=== PATIENT | male | born 1995 | race Caucasian/White ===

== ENCOUNTER 2021-02-20 06:27 | Inpatient (IN) ==
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
[2021-02-20] MEDS ORDERED: HALOPERIDOL LACTATE 5 MG/ML 1 ML VIAL IM STA ×2 (06:58→07:29)
[2021-02-20] MEDS ORDERED: LORazepam 2 MG/ML VIAL (IM USE) IM STA ×2 (07:21→07:57)
[2021-02-20 08:00] LABS: Basophils # (auto) 0.02 K/uL (0-0.2); Basophils % (auto) 0.1 %; Eosinophils # (auto) 0.01 K/uL (0-0.5); Eosinophils % (auto) 0.1 %; Hematocrit (blood only) 38.1 % (42-52); Hemoglobin 13.7 g/dL (14.0-18.0); Immature Granulocytes # (auto) 0.05 K/uL (0.00-0.02); Immature Granulocytes % (auto) 0.4 %; Lymphocytes % (auto) 8.1 %; Mean Corpuscular Hemoglobin 31.2 pg (25-34); Mean Corpuscular Volume 86.8 fL (80-100); Mean Platelet Volume 9.7 fL (7.4-10.4); Monocytes # (auto) 0.94 K/uL (0.11-0.59); Monocytes % (auto) 6.9 %; Neutrophils # (auto) 11.49 K/uL (1.4-6.5); Neutrophils % (auto) 84.4 %; Platelet Count 287 K/uL (130-400); RDW Coefficient of Variation 12.9 % (11.5-14.5); Red Blood Count 4.39 M/uL (4.7-6.1); White Blood Count 13.61 K/uL (4.8-10.8)
[2021-02-20 08:17] LABS: Acetaminophen < 2 ug/ml (10-30); Salicylate < 1.7 mg/dl (2.8-20)
[2021-02-20 08:21] LABS: BUN Creatinine Ratio 5.5 (10-20); Creatinine Clr Calc Pharmacy 120.7 ml/min; Est GFR (African American) 107.2 ml/min; Est GFR (Non-African American) 92.5 ml/min; Potassium 2.5 mmol/L (3.5-5.1)
[2021-02-20 08:28] LABS: Albumin Globulin Ratio 1.1 (0.9-2); Globulin 3.6 gm/dl (2.5-4.0); Thyroid Stimulating Hormone 1.92 uIu/ml (0.300-4.500); Total Protein 7.6 gm/dl (6.4-8.2)
[2021-02-20] MEDS ORDERED: POTASSIUM CHLORIDE / WTR 10 MEQ/100 ML PLCT IV ONE (08:29)
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
[2021-02-20] MEDS ORDERED: SODIUM CHLORIDE 0.9% 1000ML 1,000 ML IV ONE (09:13)
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
--- NOTE | 2021-02-20 09:24 | CT Scan Report ---
CT OF THE HEAD WITHOUT CONTRAST CLINICAL HISTORY: Trauma. COMPARISON STUDY: No previous studies for comparison. TECHNIQUE: Helical axial images of the head were obtained without IV contrast. Automated exposure con trol was utilized for the study. A dose lowering technique was utilized adhering to the principles o f ALARA. FINDINGS: This exam is mildly compromised by motion artifact. No acute intracranial hemorrhage, midli ne shift or mass effect is present. Ventricular system is normal. Basilar cisterns are patent. There are no extra-axial collections. Ponce-white differentiation is maintained. No calvarial fracture is id entified. Left maxillary sinus mucosal thickening is present. There is mild ethmoid and left frontal sinus mucosal thickening. IMPRESSION: 1. No acute intracranial findings. Exam mildly compromised by motion artifact. 2. No calvarial fracture identified. ACT 112: Negative or not required by law. Electronically signed by: Olvin Singh M.D. 02/20/2021 9:23 AM
--- NOTE | 2021-02-20 09:28 | CT Scan Report ---
CT OF THE CERVICAL SPINE CLINICAL HISTORY: trauma COMPARISON STUDY: No previous studies for comparison. CT DOSE: TECHNIQUE: CT scan of the cervical spine was performed from the skull base to the thoracic inlet. Merlyn ges are reviewed in the axial, sagittal, and coronal planes. IV contrast was not administered for thi s examination. A dose lowering technique was utilized adhering to the principles of ALARA. FINDINGS: The visualized portions of the lung apices reveal no evidence of pneumothorax. The prevertebral soft tissues are normal. Linear lucency is seen through the spinous process of the T1 and could represent nondisplaced fractur e () no other fracture or traumatic malalignment is seen. Questionable linear lucency of within left lateral aspect of the C6 most likely representing prominen t nutrient channel (). No significant degenerative changes seen. Central canal and bilateral neuroforamina are patent. Bilateral tonsillar prominence is seen. Diffuse edema of the posterior ethmoid air cells and multiple mucous polyps within visualized portion of the left maxillary sinus are demonstrated. IMPRESSION: Possible nondisplaced fracture at the spinous process of T1. No evidence of traumatic malalignment. Sinusitis. The rest of findings as above. ACT 112: Negative or not required by law. The above report was generated using voice recognition software. It may contain grammatical, syntax o r spelling errors. Electronically signed by: Bonnie Bunch DO 02/20/2021 9:27 AM
[2021-02-20 09:31] LABS: Appearance Urine Clear (Clear); Bacteria Urine Automated Negative (Negative); Bilirubin Urine Negative (Negative); Blood Urine Trace (Negative); Color Urine Yellow; Epithelial Cell Urine Auto >30 /lpf (0-5); Glucose Urine UA Negative (Negative); Ketones Urine 1+ (Negative); Leukocyte Esterase Urine Negative (Negative); Nitrite Urine Negative (Negative); RBC Urine Automated 0-4 /hpf (0-4); Specific Gravity Urine 1.015 (1.000-1.030); Urobilinogen Urine Negative (Negative); pH Urine 7.5 (4.5-7.5)
[2021-02-20 09:34] LABS: Protein Urine 2+ (Negative)
[2021-02-20] MEDS ORDERED: cefTRIAXone SODIUM 1,000 MG/50 ML BAG IV STA (09:36)
[2021-02-20 09:56] LABS: Amphetamines+Metham, Urine Neg (Neg); Barbiturates, Urine Neg (Neg); Benzodiazepine, Urine Pos (Neg); Cocaine, Urine Neg (Neg); MDMA (Ecstacy), Urine Neg (Neg); Methadone, Urine Neg (Neg); Opiate, Urine Neg (Neg); Phencyclidine, Urine Neg (Neg)
[2021-02-20] MEDS ORDERED: POTASSIUM CHLORIDE / WTR 10 MEQ/100 ML PLCT IV STA ×2 (10:57→16:19)
[2021-02-20] MEDS: AMPICILLIN/SULBACTAM SOD 3,000 MG in 0.9 % SODIUM CHLORIDE 100 ML IV SCH ×3 (11:30→23:30)
[2021-02-20 12:12] LABS: Allen Test Pos (Pos); Base Excess ABG 0.8 mEq/L (-9-1.8); HCO3 ABG 24 mmol/L (19-24); Oxygen Saturation ABG 97.2 % (90-95); PCO2 ABG 34 mmHg (35-46); PO2 ABG 91 mmHg (80-95); pH ABG 7.47 (7.35-7.45)
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
--- NOTE | 2021-02-20 13:53 | Critical Care Consultation ---
Date of Consultation February 20, 2021 Assessment & Plan (1) Psychosis: (2) Acute encephalopathy: (3) Hypokalemia: (4) Ingestion of foreign substance: (5) Suicidal behavior with attempted self-injury: (6) Rhabdomyolysis: (7) Aspiration into airway: (8) COVID-19: Check a BMP after potassium has been repleted. Lactated Ringer's at a rate of 125 mL/h started given his mild rhabdomyolysis. Rhabdomyolysis likely secondary to thrashing and agitation. We will repeat his CK level. I suspect the bilateral opacities noted in the lower lobes are likely due to chemical pneumonitis from aspiration. Empiric antibiotics for 48 hours reasonable at this time. Leukocytosis likely reactive. Procalcitonin within normal limits. TSH within normal limits. Negative troponin. AST mildly elevated likely secondary to muscle breakdown. Will trend LFTs. COVID-19 testing was positive, but the patient is saturating at 98 to 99% on room air. Likely not pathogenic at this time. No indication for treatment of Covid viral pneumonia. Currently on a psych 302 hold. Will need a psychiatry liaison evaluate for possible inpatient admission when medically stable. Continue Ativan and as needed antipsychotics for agitation. No indication for intubation at this time as the patient is protecting his airway. History of Present Illness Reason for Consultation: Concern for airway protection History of Present Illness 25-year-old male without a significant past medical history presenting to the hospital due to agitation. He was brought to the emergency department by the police. Patient is unable to give any history. I was able to review the chart and discussed with the ER physician, ER nurse and hospitalist. Apparently over the weekend he jumped out of a second story window and try to get into his girlfriend's vehicle. He has been smoking marijuana. He locked himself in the bathroom earlier today and started drinking bottles of shampoo and soap. He was inflicting self-harm by hitting his head in the shower. A 302 petition was completed by the police. Patient received IM Versed by EMS. He received Ativan and Haldol in the ER. He was found to have mild rhabdomyolysis and hypokalemia on labs. CT chest findings were concerning for minimal groundglass opacities in the bilateral lower lobes concerning for possible aspiration. The CT spine findings were concerning for possible nondisplaced fracture at the spinous process of T1. CT head was negative for acute findings. CT abdomen pelvis without acute findings. Patient tested positive for COVID-19 on screening in the emergency department. His salicylate level was negative. Acetaminophen level negative. UDS was positive for marijuana. Other studies pending. Ethylene glycol level negative. Home Medications Medication Instructions Recorded Confirmed Type No Known Home Medications 02/20/21 02/20/21 History Patient History Medical History (Updated 02/20/21 @ 14:27 by Jonh Byrnes MD) Acute encephalopathy No significant past medical history Psychosis Surgical History No significant past surgical history Family History (Updated 02/20/21 @ 12:58 by MESERET Carrera) Other Family history unobtainable due to patient's condition Social History Smoking Status: Unknown if ever smoked Hx Alcohol Use: No (unknown) Hx Substance Use: Yes Prescribed Medications: Marijuana Preferred Language: Yoruba Feels Safe at Home: No Review of Systems Review of Systems: Unobtainable due to mental health condition Physical Exam Constitutional: Constitutional: Patient appears to be of their stated age. Well developed. Lethargic appearing. He does move his limbs spontaneously. Eyes: Pupils are equal round and reactive to light. Conjunctivae are normal. Anicteric sclera. Ears nose, mouth and throat: Mallampati class []. Normal posterior oropharynx. Uvula is midline. Neck: Trachea is midline. Visual inspection is normal. Respiratory: Clear to auscultation bilaterally. No use of accessory muscles. No significant clubbing noted. Cardiovascular: Regular rate and rhythm. No murmurs. No edema. Gastrointestinal: Normal bowel sounds, soft, nontender and nondistended. No hepatosplenomegaly noted. Musculoskeletal: No cyanosis. Patient is able to move all extremities. Skin: No rashes, warm dry and intact. Abrasions noted on his face. Neurologic: No obvious focal neurological deficits seen. Shivering at times. Psychiatric: Noncompliant with exam. Lethargic. Results & Data Results & Data ([facility]) Vital Signs (Past 12 Hours) Vital Signs Pulse Pulse Resp BP BP Pulse Ox 02/20/21 13:32 136 H 144/66 H 98 02/20/21 13:15 141/83 H 97 02/20/21 13:04 99 H 99 02/20/21 13:00 99 H 25 H 118/68 02/20/21 12:45 91 H 33 H 126/78 02/20/21 12:30 93 H 25 H 130/87 02/20/21 12:15 131 H 23 129/74 02/20/21 12:00 86 22 133/101 H 99 02/20/21 11:45 112 H 24 131/76 99 02/20/21 11:30 126 H 24 146/84 H 100 02/20/21 11:15 90 23 134/78 99 02/20/21 11:00 91 H 20 126/70 97 02/20/21 10:30 94 H 18 113/69 97 02/20/21 10:05 118 H 16 134/75 100 02/20/21 09:46 88 L 02/20/21 09:25 95 02/20/21 09:19 89 22 119/63 94 02/20/21 06:41 94 H 22 101/84 100 Vital signs, lab and imaging personally viewed Coding Level of Care Code 01147 Inpt Consult Level 4 Diagnoses Ingestion of foreign substance T18.9XXA Suicidal behavior with attempted self-injury T14.91XA Rhabdomyolysis M62.82 Aspiration into airway T17.908A COVID-19 U07.1 Hypokalemia E87.6 Acute encephalopathy G93.40 Psychosis F29
[2021-02-20] MEDS: LACTATED RINGER'S 1,000 ML IV SCH ×2 (14:17→23:30)
[2021-02-20 14:39] LABS: BUN Creatinine Ratio 5.4 (10-20); Calcium 9.2 mg/dl (8.5-10.1); Creatinine Clr Calc Pharmacy 116.4 ml/min; Est GFR (African American) 102.7 ml/min; Est GFR (Non-African American) 88.6 ml/min; Magnesium 2.3 mg/dl (1.8-2.4); Potassium 2.7 mmol/L (3.5-5.1)
[2021-02-20 14:54] LABS: Phosphorus 2.8 mg/dl (2.5-4.9)
--- NOTE | 2021-02-20 15:33 | Electrocardiogram Report ---
Test Reason : Blood Pressure : / mmHG Vent. Rate : 096 BPM Atrial Rate : 096 BPM P-R Int : 138 ms QRS Dur : 086 ms QT Int : 370 ms P-R-T Axes : 064 064 -15 degrees QTc Int : 467 ms Normal sinus rhythm T wave abnormality, consider inferior ischemia Prolonged QT Abnormal ECG No previous ECGs available Confirmed by Micheal Ponce ([id number]) on 02/20/2021 3:32:45 PM Referred By: Confirmed By:Micheal Ponce
[2021-02-20] MEDS ORDERED: SODIUM CHLORIDE 0.9% 1000ML 1,000 ML IV SCH (16:11)
[2021-02-20] MEDS ORDERED: ICU PROTOCOL FOR HYPERGLYCEMIA PRN (16:11)
[2021-02-20] MEDS ORDERED: POTASSIUM CHLORIDE 40 MEQ in SODIUM CHLORIDE 0.9% 1000ML 1,000 ML IV SCH (16:45)
--- NOTE | 2021-02-20 17:16 | Communication Note ---
Date of Service: February 20, 2021 chart reviewed given code sherwood in ED, currently sedated after restraint and multiple IMs. Patient is COVID positive and will not be able to be admitted to psych even when 302 completed but will provide support/recs on med floor as able. IV Ativan would be preferred over additional doses of Haldol IM for tonight if agitation returns. IM Zyprexa if needed would tend to have less muscular side effects than Haldol given CPK increase (still low). History suggestive of substance induced psychosis.
[2021-02-20] MEDS: PANTOprazole 40 MG in SYRINGE 0 ML IV SCH (18:53)
[2021-02-20 18:59] LABS: BUN Creatinine Ratio 6.2 (10-20); Blood Urea Nitrogen 4 mg/dl (7-18); Calcium 8.4 mg/dl (8.5-10.1); Carbon Dioxide 24 mmol/L (21-32); Chloride 112 mmol/L (98-107); Creatinine Clr Calc Pharmacy 215.6 ml/min; Est GFR (African American) > 150.0 ml/min; Est GFR (Non-African American) 136.9 ml/min; Glucose 96 mg/dl (70-99); Potassium 3.1 mmol/L (3.5-5.1); Sodium 142 mmol/L (136-145)
[2021-02-20 19:14] LABS: Creatine Kinase 1931 U/L (39-308)
[2021-02-20] MEDS: POTASSIUM CHLORIDE / WTR 10 MEQ/100 ML PLCT IV SCH (20:40)
[2021-02-21] MEDS: POTASSIUM CHLORIDE / WTR 10 MEQ/100 ML PLCT IV SCH ×14 (00:33→21:07)
[2021-02-21] MEDS: AMPICILLIN/SULBACTAM SOD 3,000 MG in 0.9 % SODIUM CHLORIDE 100 ML IV SCH ×2 (05:59→13:32)
[2021-02-21 08:01] LABS: Basophils # (auto) 0.01 K/uL (0-0.2); Basophils % (auto) 0.1 %; Eosinophils # (auto) 0.07 K/uL (0-0.5); Eosinophils % (auto) 0.7 %; Hematocrit (blood only) 34.6 % (42-52); Hemoglobin 11.9 g/dL (14.0-18.0); Immature Granulocytes # (auto) 0.01 K/uL (0.00-0.02); Immature Granulocytes % (auto) 0.1 %; Lymphocytes # (auto) 1.67 K/uL (1.2-3.4); Lymphocytes % (auto) 17.8 %; Mean Corpuscular Hemoglobin 30.6 pg (25-34); Mean Corpuscular Hgb Conc 34.4 g/dL (32-36); Mean Corpuscular Volume 88.9 fL (80-100); Mean Platelet Volume 10.2 fL (7.4-10.4); Monocytes % (auto) 8.5 %; Neutrophils # (auto) 6.83 K/uL (1.4-6.5); Neutrophils % (auto) 72.8 %; Platelet Count 251 K/uL (130-400); RDW Coefficient of Variation 12.9 % (11.5-14.5); RDW Standard Deviation 41.5 fL (36.4-46.3); Red Blood Count 3.89 M/uL (4.7-6.1); White Blood Count 9.39 K/uL (4.8-10.8)
[2021-02-21 08:34] LABS: Sodium 141 mmol/L (136-145)
[2021-02-21 08:35] LABS: Alanine Aminotransferase 42 U/L (12-78); Albumin Level 3.2 gm/dl (3.4-5.0); Aspartate Aminotransferase 73 U/L (15-37); Blood Urea Nitrogen 5 mg/dl (7-18); Calcium 8.3 mg/dl (8.5-10.1); Carbon Dioxide 22 mmol/L (21-32); Chloride 110 mmol/L (98-107); Creatinine Clr Calc Pharmacy 215.6 ml/min; Est GFR (African American) > 150.0 ml/min; Est GFR (Non-African American) 136.9 ml/min; Glucose 83 mg/dl (70-99); Magnesium 2.1 mg/dl (1.8-2.4); Potassium 3.4 mmol/L (3.5-5.1)
[2021-02-21 08:51] LABS: Alkaline Phosphatase 51 U/L (45-117); Bilirubin Direct 0.4 mg/dl (0-0.2); Bilirubin,Total 1.7 mg/dl (0.2-1); Creatine Kinase 1310 U/L (39-308); Phosphorus 2.7 mg/dl (2.5-4.9); Total Protein 6.5 gm/dl (6.4-8.2)
[2021-02-21] MEDS: LACTATED RINGER'S 1,000 ML IV SCH ×2 (09:28→17:34)
--- NOTE | 2021-02-21 11:01 | Orthopedic Consultation ---
Date of Consultation February 21, 2021 Assessment & Plan (1) Nondisplaced fracture: This time and asked to recommend course of action regarding a nondisplaced T1 spinous process fracture. At this point I would not recommend any cervical immobilization. This may require create more discomfort than just allowing this to heal on its own with very light activity. I did request that he lift no more than 5 pounds. History of Present Illness Reason for Consultation: Spinous process fracture Attending Physician: Reena Muniz MD History of Present Illness This is a 25-year-old male admitted multiple medical issues it was discovered to have a nondisplaced spinous process fracture of T1. Home Medications Medication Instructions Recorded Confirmed Type No Known Home Medications 02/20/21 02/20/21 History Patient History Medical History (Updated 02/20/21 @ 15:04 by Roderick Nieves M.D.) Acute encephalopathy No significant past medical history Psychosis Surgical History No significant past surgical history Family History (Updated 02/20/21 @ 12:58 by MESERET Carrera) Other Family history unobtainable due to patient's condition Social History Smoking Status: Unknown if ever smoked Preferred Language: Korean Communication Ability: Impaired Beliefs That Will Affect Care: None Current Living Situation: Other Feels Safe at Home: Declines to Answer Assistive Devices: None Results & Data ([facility]) Vital Signs (Past 12 Hours) Vital Signs Temp Pulse Pulse Resp BP BP Pulse Ox 02/21/21 07:04 37.1 C 88 17 129/67 98 02/21/21 06:15 80 119/61 98 02/21/21 05:14 37.1 C 81 146/90 H 90 02/21/21 04:14 81 115/69 02/21/21 03:14 76 131/67 02/21/21 01:15 118 H 20 152/92 H 99 02/21/21 00:15 90 16 129/88 97 02/20/21 23:14 91 H 129/72 96
[2021-02-21] MEDS ORDERED: POTASSIUM CHLORIDE / WTR 10 MEQ/100 ML PLCT IV STA (11:32)
--- NOTE | 2021-02-21 12:10 | Critical Care Progress Note ---
Date of Service February 21, 2021 Assessment & Plan (1) Psychosis: (2) Acute encephalopathy: (3) Hypokalemia: (4) Ingestion of foreign substance: (5) Suicidal behavior with attempted self-injury: (6) Rhabdomyolysis: (7) Aspiration into airway: (8) COVID-19: Plan: Hypokalemia improving with replacement. CK level is downtrending. No significant medical concerns at present. Can likely discontinue antibiotics. I think the minimal groundglass opacities seen on CT chest are likely related to aspiration pneumonitis and not pneumonia. Transaminitis improving. Total bilirubin has increased slightly to 1.7. Continue to trend LFTs. UDS is entered for marijuana and benzodiazepines. Acetaminophen level and salicylates negative. COVID-19 testing was positive, but the patient is saturating at 98 to 99% on room air. Likely not pathogenic at this time. No indication for treatment of Covid viral pneumonia. Currently on a psych 302 hold. Will need a psychiatry liaison evaluate for possible inpatient admission when medically stable. Continue Ativan and as needed antipsychotics for agitation. No indication for intubation at this time as the patient is protecting his airway. Stable for downgrade to medical status from ICU status. Admission and Anticipated Discharge Date Admission Date: February 20, 2021 Subjective Patient more awake and alert today. Denies any significant complaint aside for sore throat. Hemodynamically stable. Review of Systems Review of Systems: All systems reviewed & are unremarkable except as noted in HPI & below Physical Exam Constitutional: Constitutional: Patient appears to be of their stated age. Well developed. Lethargic appearing. Eyes: Pupils are equal round and reactive to light. Conjunctivae are normal. Anicteric sclera. Ears nose, mouth and throat: Normal posterior oropharynx. Uvula is midline. Neck: Trachea is midline. Visual inspection is normal. Respiratory: Clear to auscultation bilaterally. No use of accessory muscles. No significant clubbing noted. Cardiovascular: Regular rate and rhythm. No murmurs. No edema. Gastrointestinal: Normal bowel sounds, soft, nontender and nondistended. No hepatosplenomegaly noted. Musculoskeletal: No cyanosis. Patient is able to move all extremities. Skin: No rashes, warm dry and intact. Abrasions noted on his face. Neurologic: Blunted affect. No focal deficits. Psychiatric: Noncompliant with exam. Lethargic. Results & Data Results & Data ([facility]) Vital Signs (Past 12 Hours) Vital Signs Temp Pulse Pulse Resp BP BP Pulse Ox 02/21/21 11:15 99.0 F 95 H 17 148/79 H 98 02/21/21 07:04 98.8 F 88 17 129/67 98 02/21/21 06:15 80 119/61 98 02/21/21 05:14 98.8 F 81 146/90 H 90 02/21/21 04:14 81 115/69 02/21/21 03:14 76 131/67 02/21/21 01:15 118 H 20 152/92 H 99 02/21/21 00:15 90 16 129/88 97 vital signs, labs and personally reviewed Coding Level of Care Code 48722 Subseq Hosp Care Lvl 2 Diagnoses Psychosis F29 Psychosis type: unspecified psychosis type Acute encephalopathy G93.40 Hypokalemia E87.6 Ingestion of foreign substance T18.9XXA Suicidal behavior with attempted self-injury T14.91XA Rhabdomyolysis T79.6XXA Encounter type: initial encounter Rhabdomyolysis type: traumatic Aspiration into airway T17.908A COVID-19 U07.1 (1) Psychosis Psychosis type: unspecified psychosis type Qualified Code(s): F29 - Unspecified psychosis not due to a substance or known physiological condition (2) Rhabdomyolysis Encounter type: initial encounter Rhabdomyolysis type: traumatic Qualified Code(s): T79.6XXA - Traumatic ischemia of muscle, initial encounter
[2021-02-21] MEDS: PANTOprazole 40 MG in SYRINGE 0 ML IV SCH (13:33)
--- NOTE | 2021-02-21 14:31 | Hospitalist Progress Note ---
Date of Service February 21, 2021 Assessment & Plan (1) Suicidal behavior with attempted self-injury: (2) Ingestion of foreign substance: (3) Hypokalemia: Plan: (1) Suicidal behavior with attempted self-injury: (2) Ingestion of foreign substance: Patient brought to the ED by police for severe agitation and self harming behaviors: patient locked himself in the bathroom last evening and ingested bottles of shampoo and was eating soap. In the ED, patient required the use of hard restraints and Haldol 5 mg IM x 2 doses, lorazepam 2 mg IM x 2 doses Initially critical care involved due to possibility of aspiration in the background of being unconscious. Patient is improved today. More awake and cooperative. Currently on room air. Currently on psych through to hold. Await psychiatric recommendation. 3. Covid Tested positive for Covid, symptomatic, saturating well on room air No indication for treatment at this point in time. 4. Hypokalemia Daily BMP, replace as needed 5. Rhabdomyolysis Improving, on IV fluid, follow-up total CK tomorrow. 6. Aspiration into the airway CT chest suggesting possible aspiration Started on empiric Unasyn, can DC as per [facility] recommendation. Continue monitoring clinically for any signs of infection. 7. Transaminitis AST trending down UDS positive for marijuana and benzodiazepines. Acetaminophen and salicylates negative Continue to trend LFTs DVT prophylaxis: SCDs Admission and Anticipated Discharge Date Admission Date: February 20, 2021 Subjective Patient was lying back on room air, more awake, AO x2 [not to time]. Denies any new events overnight. Patient reports passing gas. Denies any other review of symptoms. Physical Exam Physical Exam: GENERAL: Alert and oriented x2 (not to time]. NAD, on RA. HEENT: No pallor, no icterus. Pupils equal, round and reactive to light. Oral mucosa moist. Bruise over his foreheadimproving. NECK: No JVD, no neck masses. HEART: S1 and S2 heard. Regular rate and rhythm. No murmur, no gallop. RESPIRATORY SYSTEM: Normal AP diameter. No accessory muscle use. No wheezing, no crackles. ABDOMEN: Soft, bowel sounds present, nontender, no distention. CENTRAL NERVOUS SYSTEM: Alert and oriented x2. No facial droop. Speech is clear. Obeys simple commands. Moves extremities. EXTREMITIES: No edema, no erythema seen. Bruises over his left hip and left kneeimproving. Results & Data Results & Data ([facility]) Vital Signs (Past 12 Hours) Vital Signs Temp Pulse Pulse Resp BP BP Pulse Ox 02/21/21 11:15 37.2 C 95 H 17 148/79 H 98 02/21/21 07:04 37.1 C 88 17 129/67 98 02/21/21 06:15 80 119/61 98 02/21/21 05:14 37.1 C 81 146/90 H 90 02/21/21 04:14 81 115/69 02/21/21 03:14 76 131/67
--- NOTE | 2021-02-21 14:58 | Communication Note ---
Date of Service: February 21, 2021 attempted to contact patient to complete consult. He is still sedated and is able to follow simple commands but not engage in meaningful conversation per nursing. The liaison did speak with his girlfriend to obtain collateral to facilitate emergency medical care. Per girlfriend, his mother has been making him this "potion" of vodka and "a mineral that is outlawed here". She doesn't know what it is, but apparently he drank "like 4 bottles" of it this week. I highly suspect it is kratom. Nurse and attending notified as could result in an opiate like withdrawal if heavy use. May also need monitored for ETOH withdrawal if ingesting more hard liquor than baseline. Etoh and MJ alone unlikely to cause the level of agitated and disorgaznied behavior seen in this patient, who otherwise does not seem to have a prior psych history. There is no indication from girlfriend that any of this was a suicidal gesture but she has not had contact with him for 4 days. She had attempted to visit him at the family home and was told to leave as they do not approve of her jain or ethnicity. Mother reportedly speaks only [place].
[2021-02-21] MEDS ORDERED: DIPHENOXYLATE/ATROPINE 2.5/0.025MG TAB PO PRN (15:40)
[2021-02-22] MEDS: LACTATED RINGER'S 1,000 ML IV SCH ×3 (02:02→18:46)
[2021-02-22 06:56] LABS: 7-Aminoclonaz, Confirm NEGATIVE ng/mL (<25); Hydro-Alp Ur, GC/MS NEGATIVE ng/mL (<25); Hydroxyethylflurazepam, Conf NEGATIVE ng/mL (<50); Hydroxymidazolam Ur, GC/MS 1190 ng/mL (<50); Hydroxytriazolam NEGATIVE ng/mL (<50); Lorazepam, Ur GC/MS 118 ng/mL (<50); Marijuana Quant, GCMS Urine 224 ng/mL (<5); Nordiazepam, Confirm NEGATIVE ng/mL (<50); Oxazepam Ur, GC/MS NEGATIVE ng/mL (<50); Temazepam, Confirm NEGATIVE ng/mL (<50)
[2021-02-22 07:20] LABS: Basophils # (auto) 0.02 K/uL (0-0.2); Basophils % (auto) 0.2 %; Eosinophils # (auto) 0.08 K/uL (0-0.5); Eosinophils % (auto) 0.8 %; Hematocrit (blood only) 38.1 % (42-52); Hemoglobin 13.6 g/dL (14.0-18.0); Immature Granulocytes # (auto) 0.04 K/uL (0.00-0.02); Immature Granulocytes % (auto) 0.4 %; Lymphocytes # (auto) 2.25 K/uL (1.2-3.4); Lymphocytes % (auto) 21.7 %; Mean Corpuscular Hemoglobin 31.7 pg (25-34); Mean Corpuscular Hgb Conc 35.7 g/dL (32-36); Mean Corpuscular Volume 88.8 fL (80-100); Mean Platelet Volume 9.8 fL (7.4-10.4); Monocytes # (auto) 0.78 K/uL (0.11-0.59); Monocytes % (auto) 7.5 %; Neutrophils # (auto) 7.18 K/uL (1.4-6.5); Neutrophils % (auto) 69.4 %; Platelet Count 314 K/uL (130-400); RDW Coefficient of Variation 12.6 % (11.5-14.5); RDW Standard Deviation 40.3 fL (36.4-46.3); Red Blood Count 4.29 M/uL (4.7-6.1); White Blood Count 10.35 K/uL (4.8-10.8)
[2021-02-22 07:50] LABS: Alanine Aminotransferase 53 U/L (12-78); Albumin Level 3.9 gm/dl (3.4-5.0); Aspartate Aminotransferase 83 U/L (15-37); BUN Creatinine Ratio 6.4 (10-20); Bilirubin Direct 0.3 mg/dl (0-0.2); Blood Urea Nitrogen 4 mg/dl (7-18); Calcium 9.5 mg/dl (8.5-10.1); Carbon Dioxide 23 mmol/L (21-32); Chloride 107 mmol/L (98-107); Creatinine Clr Calc Pharmacy 230.7 ml/min; Est GFR (African American) > 150.0 ml/min; Est GFR (Non-African American) 140.7 ml/min; Glucose 110 mg/dl (70-99); Magnesium 2.5 mg/dl (1.8-2.4); Potassium 3.3 mmol/L (3.5-5.1); Sodium 140 mmol/L (136-145)
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
[2021-02-22 08:04] LABS: Alkaline Phosphatase 63 U/L (45-117); Bilirubin,Total 1.2 mg/dl (0.2-1); Creatine Kinase 1270 U/L (39-308); Phosphorus 2.7 mg/dl (2.5-4.9); Total Protein 7.9 gm/dl (6.4-8.2)
[2021-02-22] MEDS ORDERED: POTASSIUM CHLORIDE CRTAB 20 MEQ TABCR PO STA (08:39)
[2021-02-22] MEDS ORDERED: LORazepam 2 MG/ML VIAL (IM USE) IM PRN (10:15)
[2021-02-22] MEDS ORDERED: BENZTROPINE MESYLATE 1 MG/ML 2 ML AMP IM PRN (10:15)
[2021-02-22] MEDS ORDERED: HALOPERIDOL LACTATE 5 MG/ML 1 ML VIAL IM PRN (10:15)
[2021-02-22] MEDS: risperiDONE 1 MG TABLET PO SCH ×2 (11:19→20:15)
[2021-02-22] MEDS: ACETAMINOPHEN 325 MG TAB PO PRN (11:44)
[2021-02-22] MEDS: LIDOCAINE 5% 1 PATCH TD SCH (13:43)
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
[2021-02-22] MEDS: cloNIDine HCL 0.1 MG TAB PO PRN (20:16)
[2021-02-23] MEDS: LACTATED RINGER'S 1,000 ML IV SCH ×4 (03:00→22:51)
[2021-02-23 06:47] LABS: Basophils # (auto) 0.01 K/uL (0-0.2); Basophils % (auto) 0.1 %; Eosinophils # (auto) 0.09 K/uL (0-0.5); Eosinophils % (auto) 0.9 %; Hematocrit (blood only) 39.2 % (42-52); Hemoglobin 13.6 g/dL (14.0-18.0); Immature Granulocytes # (auto) 0.02 K/uL (0.00-0.02); Immature Granulocytes % (auto) 0.2 %; Lymphocytes % (auto) 18.4 %; Mean Corpuscular Hemoglobin 31.3 pg (25-34); Mean Corpuscular Hgb Conc 34.7 g/dL (32-36); Mean Corpuscular Volume 90.1 fL (80-100); Mean Platelet Volume 9.7 fL (7.4-10.4); Monocytes % (auto) 8.7 %; Neutrophils # (auto) 7.41 K/uL (1.4-6.5); Neutrophils % (auto) 71.7 %; Platelet Count 286 K/uL (130-400); RDW Coefficient of Variation 12.7 % (11.5-14.5); RDW Standard Deviation 41.4 fL (36.4-46.3); Red Blood Count 4.35 M/uL (4.7-6.1); White Blood Count 10.33 K/uL (4.8-10.8)
[2021-02-23 07:23] LABS: Albumin Level 3.7 gm/dl (3.4-5.0); BUN Creatinine Ratio 5.8 (10-20); Bilirubin Direct 0.2 mg/dl (0-0.2); Calcium 9.2 mg/dl (8.5-10.1); Creatinine Clr Calc Pharmacy 187.9 ml/min; Est GFR (African American) 149.9 ml/min; Est GFR (Non-African American) 129.3 ml/min; Magnesium 2.4 mg/dl (1.8-2.4); Potassium 3.7 mmol/L (3.5-5.1)
[2021-02-23 07:33] LABS: Bilirubin,Total 0.9 mg/dl (0.2-1); Total Protein 7.6 gm/dl (6.4-8.2)
[2021-02-23 08:05] LABS: Phosphorus 4.7 mg/dl (2.5-4.9)
--- NOTE | 2021-02-23 08:11 | Psychiatric Progress Note ---
Date of Service February 23, 2021 Impression / Recommendations Impression 25 yo male with substance induced psychotic episode, heavy THC with a hx of cannabis induced paranoia and hallucinations, possible kratom exposure. Presentation with some hypersexuality, depression, hyperreligiosity with poor sleep and impulsivity is a mixed rafael presentation, unable to exclude a bipolar episode. 02/23/21: improving, tolerating Risperdal and that would not be the cause of N. (1) Psychosis: 02/23/21: continue current meds and treatment plan. Remains unable to leave the hospital AMA, currently cooperative with care. 02/22/21: safety to be maintained on medical floor for isolation as Covid+, 302 commitment likely when medically cleared (not on a secure locked unit). continue 1-on-1 given 302 warrant. Patient is agreeable to remain hospitalized at this time Risks/benefits/alternatives were reviewed re: antipsychotics for mood and/or psychosis. Discussion included but was not limited to metabolic side effects, risks of TD and suicidal thoughts. He agreed to Risperdal 1 mg po BID. Will write additional prn Risperdal as well as IM for Haldol and Ativan should his agitation recur. Nurse updated. Interval History Identifying Information 25 yo male, admit 02/20 for disorganized and agitated behavior, presumed substance induced psychosis Chief Complaint "my tummy is upset but otherwise I feel clearer". Review of Systems Notes patient also reports L shoulder pain, otherwise eating well. Did have JAMES around 3 am and received prn Ativan for restlessness. Telehealth Telehealth Options: Telephone only For the duration of the visit, provider was performing the assessment from: The same facility as the patient After establishing a telemedicine visit, patient was: Patient was verified with two unique identifiers and Gave permission to continue telehealth session Total Time Spent (minutes): 18 Subjective Subjective Patient was seen & assessed and interval progress reviewed with nursing. Seemed more confused late pm (delusional and hallucinating per staff, "inappropriate" comments to staff) but less religiously and sexually preoccupied. Denies rhinorrhea, piloerection, or other symptoms of withdrawal, just states "I worry I messed up my insides with that hair stuff and chewing plastic". Seemed reassured by his CT results. Ongoing sadness, intermittent confusion, but answering questions more directly. Physical Exam Psychiatric Orientation: alert, oriented to person and oriented to place Motor Behavior: no abnormal motor movements Speech: normal rate/rhythm/volume of speech (but non spontaneous at times) Thought Process: + circumstantial thought process Thought Content: no delusions Suicidal Thoughts: denies suicidal thoughts Homicidal Thoughts: denies homicidal thoughts Hallucinations: no auditory hallucinations and no visual hallucinations Cognition: attention grossly intact (short but improved) and language grossly intact Estimated Intelligence: consistent with education level Insight: + poor insight Judgement: + poor judgement Vital Signs (Past 24 Hours) Last Vital Signs Temp 36.7 C 02/23/21 06:31 Pulse 87 02/23/21 06:31 Resp 17 02/23/21 06:31 BP 127/82 02/23/21 06:31 Pulse Ox 99 02/23/21 06:31 Results & Data ([facility] [place]) Laboratory Results Laboratory Results - last 24 hr 02/23/21 02/23/21 06:34 06:34 WBC 10.33 RBC 4.35 L Hgb 13.6 L Hct 39.2 L MCV 90.1 MCH 31.3 MCHC 34.7 RDW Std Deviation 41.4 RDW Coeff of [place] 12.7 Plt Count 286 MPV 9.7 Immature Gran % (Auto) 0.2 Neut % (Auto) 71.7 Lymph % (Auto) 18.4 [place] % (Auto) 8.7 Eos % (Auto) 0.9 Baso % (Auto) 0.1 Neut # (Auto) 7.41 H Lymph # (Auto) 1.90 [place] # (Auto) 0.90 H Eos # (Auto) 0.09 Baso # (Auto) 0.01 Immature Gran # (Auto) 0.02 Sodium 138 Potassium 3.7 Chloride 106 Carbon Dioxide 25 Anion Gap 7.0 BUN 4 L Creatinine 0.70 Est Cr Clr Drug Dosing 187.9 Est GFR ( Amer) 149.9 Est GFR (Non-Af Amer) 129.3 BUN/Creatinine Ratio 5.8 L Glucose 105 H Calcium 9.2 Phosphorus 4.7 D Magnesium 2.4 Total Bilirubin 0.9 Direct Bilirubin 0.2 AST 55 H ALT 49 Alkaline Phosphatase 54 Total Protein 7.6 Albumin 3.7 Current Inpatient Medications Current Inpatient Medications: Current Inpatient Medications Acetaminophen (Acetaminophen 325 Mg Tab) 650 mg PO Q4H PRN PRN Reason: pain/fever Stop: 03/24/21 11:32 Last Admin: 02/22/21 11:44 Dose: 650 mg Documented by: Benztropine Mesylate (Benztropine Mesylate 1 Mg/Ml 2 Ml Amp) 1 mg IM Q6 PRN PRN Reason: dystonic reaction Stop: 03/24/21 10:14 Clonidine HCl (Clonidine Hcl 0.1 Mg Tab) 0.1 mg PO Q2H PRN PRN Reason: For ANY 2 Symptoms Stop: 03/23/21 15:39 Last Admin: 02/22/21 20:16 Dose: 0.1 mg Documented by: Diphenoxylate HCl/Atropine (Diphenoxylate/Atropine 2.5/0.025mg Tab) 1 tab PO Q4H PRN PRN Reason: Abdomincal cramping/diarrhea Stop: 03/23/21 15:39 Haloperidol Lactate (Haloperidol Lactate 5 Mg/Ml 1 Ml Vial) 10 mg IM Q4 PRN PRN Reason: Agitation Stop: 03/24/21 10:14 Lactated Ringer's (Lr) 1,000 mls @ 125 mls/hr IV .Q8H PENDING SALE TO [facility] Stop: 03/22/21 13:59 Last Admin: 02/23/21 06:40 Dose: 125 mls/hr Documented by: Lidocaine (Lidocaine 5% 1 Patch) 1 patch TD QAM [facility] Stop: 03/24/21 11:44 Last Admin: 02/22/21 13:43 Dose: 1 patch Documented by: Lorazepam (Lorazepam 2 Mg/Ml Vial (Im Use)) 2 mg IM Q4 PRN PRN Reason: Agitation Stop: 03/24/21 10:14 Last Admin: 02/23/21 03:16 Dose: 2 mg Documented by: Miscellaneous (Remove Lidoderm Patch) 1 ea N/A DAILY@2100 [facility] Stop: 03/24/21 20:59 Last Admin: 02/22/21 20:15 Dose: 1 ea Documented by: Risperidone (Risperidone 1 Mg Tablet) 1 mg PO BID [facility] Stop: 03/24/21 10:44 Last Admin: 02/22/21 20:15 Dose: 1 mg Documented by: Risperidone (Risperidone Odt 1mg) 1 mg PO Q6 PRN PRN Reason: Anxiety/Agitation Stop: 03/24/21 10:14 Last Admin: 02/22/21 20:15 Dose: 1 mg Documented by: (1) Psychosis Psychosis type: unspecified psychosis type Qualified Code(s): F29 - Unspecified psychosis not due to a substance or known physiological condition
[2021-02-23] MEDS: risperiDONE 1 MG TABLET PO SCH ×2 (08:26→19:51)
[2021-02-23] MEDS: LIDOCAINE 5% 1 PATCH TD SCH (08:26)
--- NOTE | 2021-02-23 15:10 | XRay Report ---
KUB CLINICAL HISTORY: Nausea, Abd pressure COMPARISON STUDY: CT of the abdomen and pelvis February 20, 2021. FINDINGS: The bowel gas pattern is normal. No urinary calculi are present. No acute fractures are genaro ntified within the visualized skeletal structures. IMPRESSION: Unremarkable KUB. ACT 112: Negative or not required by law. Electronically signed by: Olvin Singh M.D. 02/23/2021 3:09 PM
--- NOTE | 2021-02-23 15:48 | Hospitalist Progress Note ---
Date of Service February 23, 2021 Assessment & Plan (1) Suicidal behavior with attempted self-injury: Plan: Substance induced psychotic episode Admits to using THC, Alcohol Possible kratom exposure Denies IV drug use [address] Appreciate Psychiatry Input On risperidone, Ativan Continue current medications (2) Ingestion of foreign substance: Plan: Mild Rhabdomyolysis Transaminitis LFTs improved Monitor Continue IV fluids (3) Hypokalemia: Plan: Resolved Monitor (4) SARS-CoV-2 positive: Plan: Saturating well on room air Currently does not require any treatment Continue isolation precautions (5) Rhabdomyolysis: Plan: Management as above (6) Aspiration into airway: Plan: CT suggested pneumonia Was on Unasyn empirically Per pulm recommendation this was likely consistent with an aspiration pneumonitis and abx were discontinue d Monitor (7) DVT prophylaxis: Plan: SCDs Code Status Full Code Admission and Anticipated Discharge Date Admission Date: February 20, 2021 Subjective Patient is seen and examined at bedside States feeling anxious this morning States having nausea abdominal pressure which he attributes to " ball of hair" Denies chest pain, dyspnea, dizziness Intermittent confusion Sitter at bedside Review of Systems Review of Systems: All systems reviewed & are unremarkable except as noted in Subjective Physical Exam Physical Exam: Physical Exam: Vitals signs as noted above General Appearance:Moderately built and nourished, no apparent distress Head: normocephalic, Atraumatic Eyes: normal inspection, EOMI Neck: supple, Trachea midline Respiratory/Chest: Normal breath sounds, CTA Cardiovascular: S1, S2, No murmur Abdomen/GI:Soft, Non tender, Bowel sounds present Extremities/Musculoskeletal:normal inspection, no edema, Small wounds B/L LE Feet Neurologic/Psych:AAOX3, grossly no focal neurological deficits Skin: normal color, warm Results & Data Results & Data ([facility]) Vital Signs (Past 12 Hours) Vital Signs Temp Pulse Pulse Resp BP Pulse Ox 02/23/21 11:55 36.9 C 97 H 14 126/69 98 02/23/21 10:00 103 H 23 02/23/21 08:00 114 H 20 98 02/23/21 06:31 36.7 C 87 17 127/82 99 02/23/21 06:25 94 H Laboratory Results Short CBC 02/23/21 Range/Units 06:34 WBC 10.33 (4.8-10.8) K/uL Hgb 13.6 L (14.0-18.0) g/dL Hct 39.2 L (42-52) % Plt Count 286 (130-400) K/uL BMP 02/23/21 06:34 Sodium 138 Potassium 3.7 Chloride 106 Carbon Dioxide 25 BUN 4 L Creatinine 0.70 Glucose 105 H Calcium 9.2 Liver Function 02/23/21 Range/Units 06:34 Total Bilirubin 0.9 (0.2-1) mg/dl Direct Bilirubin 0.2 (0-0.2) mg/dl AST 55 H (15-37) U/L ALT 49 (12-78) U/L Alkaline Phosphatase 54 (45-117) U/L Albumin 3.7 (3.4-5.0) gm/dl
[2021-02-23] MEDS: THIAMINE HCL 100 MG TAB PO SCH (17:29)
[2021-02-23] MEDS: FOLIC ACID 1 MG TAB PO SCH (17:30)
[2021-02-23] MEDS: cloNIDine HCL 0.1 MG TAB PO PRN (20:52)
[2021-02-23] MEDS: LORazepam 1 MG TAB PO PRN (20:52)
[2021-02-24] MEDS: LACTATED RINGER'S 1,000 ML IV SCH (06:48)
[2021-02-24 06:56] LABS: BUN Creatinine Ratio 9.1 (10-20); Blood Urea Nitrogen 6 mg/dl (7-18); Calcium 9.1 mg/dl (8.5-10.1); Carbon Dioxide 27 mmol/L (21-32); Chloride 108 mmol/L (98-107); Creatinine Clr Calc Pharmacy 190.6 ml/min; Est GFR (African American) > 150.0 ml/min; Est GFR (Non-African American) 130.1 ml/min; Glucose 94 mg/dl (70-99); Magnesium 2.4 mg/dl (1.8-2.4); Sodium 139 mmol/L (136-145)
[2021-02-24 06:59] LABS: Creatine Kinase 282 U/L (39-308)
[2021-02-24] MEDS: risperiDONE 1 MG TABLET PO SCH ×2 (08:01→21:22)
[2021-02-24] MEDS: THIAMINE HCL 100 MG TAB PO SCH (08:01)
[2021-02-24] MEDS: LIDOCAINE 5% 1 PATCH TD SCH (08:01)
[2021-02-24] MEDS: FOLIC ACID 1 MG TAB PO SCH (08:02)
--- NOTE | 2021-02-24 08:59 | Communication Note ---
Date of Service: February 24, 2021 chart reviewed, case discussed with liaison and briefly updated Dr. Mena. He remains disorganized in conversation, told liaison last pm he was afraid to use the bathroom as didn't want to evacuate his "egg", apparently referring to testicle. Accepting scheduled doses of Risperdal. Fewer prns for breakthrough. Likely to require inpatient psychiatric hospitalization when medically cleared. Medical clearance for psych would require 2 negative COVID tests (PCR) 24-48 hrs apart (timing per ID nurse). He has been cooperative with care so far, will need to determine if willing for 201 at the time of medical clearance.
[2021-02-24] MEDS: cloNIDine HCL 0.1 MG TAB PO PRN (11:02)
[2021-02-24] MEDS: LORazepam 1 MG TAB PO PRN ×2 (15:49→21:39)
--- NOTE | 2021-02-24 16:12 | Hospitalist Progress Note ---
Date of Service February 24, 2021 Assessment & Plan (1) Suicidal behavior with attempted self-injury: Plan: Substance induced psychotic episode Admits to using THC, Alcohol, Soap Possible kratom exposure Denies IV drug use [address] Appreciate Psychiatry Input On risperidone, Ativan Haldol PRN Continue medications as per Psychiatry We will need to negative Covid screens before inpatient psychiatric hospitalization Consult to quit THC use (2) Ingestion of foreign substance: Plan: Mild Rhabdomyolysis Transaminitis LFTs improved CK levels normalized Monitor IV fluids discontinued Resolved (3) Hypokalemia: Plan: Resolved Monitor (4) SARS-CoV-2 positive: Plan: Saturating well on room air Currently does not require any treatment Continue isolation precautions Repeat Covid screen ordered today. (5) Rhabdomyolysis: Plan: Management as above (6) Aspiration into airway: Plan: CT suggested pneumonia Was on Unasyn empirically Per pulm recommendation this was likely consistent with an aspiration pneumonitis and abx were discontinue d Monitor (7) DVT prophylaxis: Plan: SCDs Code Status Full Code Admission and Anticipated Discharge Date Admission Date: February 20, 2021 Subjective Patient is seen and examined at bedside Oriented x3 during my encounter Intermittently confused as per RN Reports having some bruises from fall " I am concerned about having Prostate Cancer" Denies chest pain, dyspnea, dizziness Sitter at bedside No agitation noted Review of Systems Review of Systems: All systems reviewed & are unremarkable except as noted in Subjective Physical Exam Physical Exam: Physical Exam: Vitals signs as noted above General Appearance:Moderately built and nourished, no apparent distress Head: normocephalic, Atraumatic Eyes: normal inspection, EOMI Neck: supple, Trachea midline Respiratory/Chest: Normal breath sounds, CTA Cardiovascular: S1, S2, No murmur Abdomen/GI:Soft, Non tender, Bowel sounds present Extremities/Musculoskeletal:normal inspection, no edema, Small wounds B/L LE Feet Neurologic/Psych:AAOX3, grossly no focal neurological deficits Skin: normal color, warm, +Multiple bruising on back, hips Results & Data Results & Data ([facility]) Vital Signs (Past 12 Hours) Vital Signs Temp Pulse Resp BP Pulse Ox 02/24/21 14:49 36.3 C L 114 H 22 146/91 H 97 02/24/21 10:55 36.4 C L 116 H 22 154/78 H 98 02/24/21 07:00 37 C 101 H 18 138/81 99 Laboratory Results BMP 02/24/21 06:06 Sodium 139 Potassium 4.0 Chloride 108 H Carbon Dioxide 27 BUN 6 L Creatinine 0.69 Glucose 94 Calcium 9.1 Cardiac Enzymes 02/24/21 Range/Units 06:06 Total Creatine Kinase 282 (39-308) U/L
[2021-02-25 07:00] LABS: Hematocrit (blood only) 41.6 % (42-52); Hemoglobin 14.2 g/dL (14.0-18.0); Mean Corpuscular Hemoglobin 31.3 pg (25-34); Mean Corpuscular Hgb Conc 34.1 g/dL (32-36); Mean Corpuscular Volume 91.8 fL (80-100); Mean Platelet Volume 10.1 fL (7.4-10.4); Platelet Count 287 K/uL (130-400); RDW Coefficient of Variation 13.1 % (11.5-14.5); RDW Standard Deviation 43.7 fL (36.4-46.3); Red Blood Count 4.53 M/uL (4.7-6.1); White Blood Count 8.45 K/uL (4.8-10.8)
[2021-02-25 07:36] LABS: BUN Creatinine Ratio 12.4 (10-20); Calcium 9.3 mg/dl (8.5-10.1); Creatinine Clr Calc Pharmacy 177.7 ml/min; Est GFR (African American) 146.5 ml/min; Est GFR (Non-African American) 126.4 ml/min
[2021-02-25] MEDS: THIAMINE HCL 100 MG TAB PO SCH (08:52)
[2021-02-25] MEDS: risperiDONE 1 MG TABLET PO SCH (08:52)
[2021-02-25] MEDS: FOLIC ACID 1 MG TAB PO SCH (08:52)
[2021-02-25] MEDS: LIDOCAINE 5% 1 PATCH TD SCH (08:53)
[2021-02-25] MEDS: ACETAMINOPHEN 325 MG TAB PO PRN (12:51)
--- NOTE | 2021-02-25 16:13 | Communication Note ---
Date of Service: February 25, 2021 Call patient over the phone to discuss care due to Covid status. Patient initially presented well, with calm affect and was speaking logically and corinne sonably. He did however during the course of the conversation verbalize a delusion. Patient states that he is fearful that he will spirits are out to get him. He denies that the will do anything violent to act out against them. He denies any auditory hallucinations at this time. He understands that his symptoms are part of his mental illness and that he will require medications to treat these symptoms. Patient agreeable to increased dosage of risperidone. Plan: Increase risperidone to 1 mg p.o. every morning, 2 mg p.o. nightly. Psychiatry will continue to assess patient Patient is likely to require inpatient psychiatric hospitalization following medical clearance
[2021-02-25] MEDS: PANTOprazole 40 MG TAB PO SCH (16:42)
--- NOTE | 2021-02-25 16:53 | Hospitalist Progress Note ---
Date of Service February 25, 2021 Assessment & Plan (1) Suicidal behavior with attempted self-injury: Plan: Substance induced psychotic episode: (From admission H&P)Smoked a large amount of marijuana the evening before admission. Drank bottles of shampoo and soap. Admits to using THC, Alcohol, Soap Possible kratom(a form of [place] containing psychoactive alkaloids mitragynine and 17-Hydroxymitrogynine) exposure Denies IV drug use [address] Appreciate Psychiatry Input and recommendation On risperidone, Ativan Haldol PRN Continue medications as per Psychiatry We will need to negative Covid screens before inpatient psychiatric hospitalization Consult to quit THC use Remains stable medically Epigastric discomfort and left first MCP joint pain PPI given Diclofenac gel applied (2) Ingestion of foreign substance: Plan: As above Mild Rhabdomyolysis Transaminitis LFTs improved CK levels normalized Monitor IV fluids discontinued Resolved (3) Hypokalemia: Plan: Resolved Monitor (4) SARS-CoV-2 positive: Plan: Saturating well on room air Currently does not require any treatment Continue isolation precautions Repeat Covid screen ordered today. -COVID-19 remains positive as of February 25, 2021 Discussed with the infectious disease nurse-Will require 10 days of isolation following first positive diagnosis of COVID-19 and after that he can be free of isolation even though remains positive. We will need to discuss with them again before clearing the patient from isolation (5) Rhabdomyolysis: Plan: Management as above (6) Aspiration into airway: Plan: CT suggested pneumonia Was on Unasyn empirically Per pulm recommendation this was likely consistent with an aspiration pneumonitis and abx were discontinue d Monitor (7) DVT prophylaxis: Plan: SCDs Code Status Full Code Admission and Anticipated Discharge Date Admission Date: February 20, 2021 Subjective February 25, 2021 The patient was seen and examined in telemetry unit and in the Covid room He does not have any respiratory symptoms Complains to have epigastric discomfort and left 1st MCP joint pain Review of Systems Review of Systems: All systems reviewed and are unremarkable except as noted below Gastrointestinal: Take discomfort Musculoskeletal: Left first MTP joint pain Physical Exam Physical Exam: Lying in bed comfortably Constitutional: well developed, well nourished and average body habitus; not ill appearing Eyes: PERRL, conjunctivae normal, anicteric sclerae ENMT: external ear and nose normal, oropharynx normal Neck: trachea midline, no thyromegaly Respiratory: no respiratory distress and no cough Auscultation: lungs clear to auscultation bilaterally Cardiovascular: Rate/Rhythm: regular rate and regular rhythm; not tachycardic Heart Sounds: normal S1 and normal S2; no murmur Extremities: no edema Gastrointestinal (Abdomen): Inspection/Auscultation: normal bowel sounds; abdomen not distended Percussion/Palpation: + abdomen tender (Minimally tender in the epigastrium) and abdomen soft Musculoskeletal: Mild pain with movement of the left thumb no definite swelling involving the first MTP joint Neurologic: Alert, awake and oriented x3. No focal sensory and motor deficit appreciated Results & Data Results & Data ([facility]) Vital Signs (Past 12 Hours) Vital Signs Temp Pulse Resp BP BP Pulse Ox 02/25/21 15:00 36.7 C 91 H 16 152/87 H 98 02/25/21 11:03 36.7 C 102 H 23 139/83 97 02/25/21 07:58 36.7 C 93 H 19 97/62 L 97 Laboratory Results Short CBC 02/25/21 Range/Units 06:29 WBC 8.45 (4.8-10.8) K/uL Hgb 14.2 (14.0-18.0) g/dL Hct 41.6 L (42-52) % Plt Count 287 (130-400) K/uL BMP 02/25/21 06:29 Sodium 138 Potassium 4.0 Chloride 108 H Carbon Dioxide 24 BUN 9 Creatinine 0.74 Glucose 90 Calcium 9.3 Medications Administered Current Inpatient Medications Acetaminophen (Acetaminophen 325 Mg Tab) 650 mg PO Q4H PRN PRN Reason: pain/fever Stop: 03/24/21 11:32 Last Admin: 02/25/21 12:51 Dose: 650 mg Documented by: Benztropine Mesylate (Benztropine Mesylate 1 Mg/Ml 2 Ml Amp) 1 mg IM Q6 PRN PRN Reason: dystonic reaction Stop: 03/24/21 10:14 Clonidine HCl (Clonidine Hcl 0.1 Mg Tab) 0.1 mg PO Q2H PRN PRN Reason: For ANY 2 Symptoms Stop: 03/23/21 15:39 Last Admin: 02/24/21 11:02 Dose: 0.1 mg Documented by: Diclofenac Sodium (Diclofenac Sod 1% Gel 100 Gm Tube) 2 gm EXT BID [facility] Stop: 10/20/21 20:59 Diphenoxylate HCl/Atropine (Diphenoxylate/Atropine 2.5/0.025mg Tab) 1 tab PO Q4H PRN PRN Reason: Abdomincal cramping/diarrhea Stop: 03/23/21 15:39 Folic Acid (Folic Acid 1 Mg Tab) [facility] [place] Stop: 03/25/21 15:44 Last Admin: 02/25/21 08:52 Dose: 1 mg Documented by: Haloperidol Lactate (Haloperidol Lactate 5 Mg/Ml 1 Ml Vial) 10 mg IM Q4 PRN PRN Reason: Agitation Stop: 03/24/21 10:14 Lidocaine (Lidocaine 5% 1 Patch) 1 patch TD [facility] Stop: 03/24/21 11:44 Last Admin: 02/25/21 08:53 Dose: 1 patch Documented by: Lorazepam (Lorazepam 2 Mg/Ml Vial (Im Use)) 2 mg IM Q4 PRN PRN Reason: Agitation Stop: 03/24/21 10:14 Last Admin: 02/23/21 03:16 Dose: 2 mg Documented by: Lorazepam (Lorazepam 1 Mg Tab) 1 mg PO Q6 PRN PRN Reason: Anxiety/Insomnia Stop: 03/25/21 11:53 Last Admin: 02/24/21 21:39 Dose: 1 mg Documented by: Miscellaneous (Remove Lidoderm Patch) 1 ea N/A DAILY@2100 [facility] Stop: 03/24/21 20:59 Last Admin: 02/24/21 21:22 Dose: 1 ea Documented by: Pantoprazole Sodium (Pantoprazole 40 Mg Tab) 40 mg PO [facility] Stop: 03/27/21 13:59 Last Admin: 02/25/21 16:42 Dose: 40 mg Documented by: Risperidone (Risperidone Odt 1mg) 1 mg PO Q6 PRN PRN Reason: Anxiety/Agitation Stop: 03/24/21 10:14 Last Admin: 02/25/21 16:41 Dose: 1 mg Documented by: Risperidone (Risperidone 1 Mg Tablet) [facility] [place] Stop: 03/28/21 08:59 Risperidone (Risperidone 2 Mg Tablet) 2 mg PO [facility] Stop: 03/27/21 20:59 Thiamine HCl (Thiamine Hcl 100 Mg Tab) 100 mg PO QAM [facility] Stop: 03/25/21 15:44 Last Admin: 02/25/21 08:52 Dose: 100 mg Documented by:
[2021-02-25] MEDS: DICLOFENAC SOD 1% GEL 100 GM TUBE EXT SCH (20:09)
[2021-02-25] MEDS ORDERED: risperiDONE 2 MG TABLET PO SCH (21:00)
[2021-02-25] MEDS: LORazepam 1 MG TAB PO PRN (21:10)
[2021-02-25] MEDS: cloNIDine HCL 0.1 MG TAB PO PRN (22:44)
[2021-02-26] MEDS ORDERED: risperiDONE 1 MG TABLET PO SCH (09:00)
[2021-02-26] MEDS: DICLOFENAC SOD 1% GEL 100 GM TUBE EXT SCH ×2 (09:04→19:36)
[2021-02-26] MEDS: FOLIC ACID 1 MG TAB PO SCH (09:07)
[2021-02-26] MEDS: PANTOprazole 40 MG TAB PO SCH (09:07)
[2021-02-26] MEDS: LIDOCAINE 5% 1 PATCH TD SCH (09:07)
[2021-02-26] MEDS: THIAMINE HCL 100 MG TAB PO SCH (09:08)
--- NOTE | 2021-02-26 14:18 | Hospitalist Progress Note ---
Date of Service February 26, 2021 Assessment & Plan (1) Suicidal behavior with attempted self-injury: Plan: Substance induced psychotic episode: (From admission H&P)Smoked a large amount of marijuana the evening before admission. Drank bottles of shampoo and soap. Admits to using THC, Alcohol, Soap Possible kratom(a form of South tea containing psychoactive alkaloids mitragynine and 17-Hydroxymitrogynine) exposure Denies IV drug use [address] Appreciate Psychiatry Input and recommendation On risperidone, Ativan Haldol PRN Continue medications as per Psychiatry We will need to negative Covid screens before inpatient psychiatric hospitalization Consult to quit THC use Remains stable medically Epigastric discomfort and left first MCP joint pain PPI given Diclofenac gel applied The pain in the left metacarpophalangeal joint and epigastric pain have improved a lot (2) Ingestion of foreign substance: Plan: As above Mild Rhabdomyolysis Transaminitis LFTs improved CK levels normalized Monitor IV fluids discontinued Resolved (3) Hypokalemia: Plan: Resolved Monitor (4) SARS-CoV-2 positive: Plan: Saturating well on room air Currently does not require any treatment Continue isolation precautions Repeat Covid screen ordered today. -COVID-19 remains positive as of February 25, 2021 Discussed with the infectious disease nurse-Will require 10 days of isolation following first positive diagnosis of COVID-19 and after that he can be free of isolation even though remains positive. We will need to discuss with them again before clearing the patient from isolation (5) Rhabdomyolysis: Plan: Management as above (6) Aspiration into airway: Plan: CT suggested pneumonia Was on Unasyn empirically Per pulm recommendation this was likely consistent with an aspiration pneumonitis and abx were discontinue d Monitor (7) DVT prophylaxis: Plan: SCDs Code Status Full Code Admission and Anticipated Discharge Date Admission Date: February 20, 2021 Subjective February 25, 2021 The patient was seen and examined in telemetry unit and in the Covid room He does not have any respiratory symptoms Complains to have epigastric discomfort and left 1st MCP joint pain 02/26/2021 The patient was seen and examined in telemetry unit and in the Covid room He does not have any respiratory symptoms and has not been requiring any oxygen since admission His pain in the left thumb and epigastric discomfort have improved a lot Denies any other symptoms Review of Systems Review of Systems: All systems reviewed and are unremarkable except as noted below Gastrointestinal: Epigastric discomfort-resolved Musculoskeletal: Left first MTP joint pain-improving Physical Exam Physical Exam: Sitting on the bed comfortably Constitutional: well developed, well nourished and average body habitus; not ill appearing Eyes: PERRL, conjunctivae normal, anicteric sclerae ENMT: external ear and nose normal, oropharynx normal Neck: trachea midline, no thyromegaly Respiratory: no respiratory distress and no cough Auscultation: lungs clear to auscultation bilaterally Cardiovascular: Rate/Rhythm: regular rate and regular rhythm; not tachycardic Heart Sounds: normal S1 and normal S2; no murmur Extremities: no edema Gastrointestinal (Abdomen): Inspection/Auscultation: normal bowel sounds; abdomen not distended Percussion/Palpation: + abdomen tender (Minimally tender in the epigastrium) and abdomen soft Musculoskeletal: No acute arthritis in any joint Neurologic: Alert and awake Results & Data Results & Data ([facility]) Vital Signs (Past 12 Hours) Vital Signs Temp Pulse Resp BP Pulse Ox 02/26/21 12:25 36.8 C 94 H 20 115/66 98 02/26/21 08:34 36.8 C 112 H 19 124/88 98 02/26/21 03:00 36.7 C 70 20 122/69 99 Medications Administered Current Inpatient Medications Acetaminophen (Acetaminophen 325 Mg Tab) 650 mg PO Q4H PRN PRN Reason: pain/fever Stop: 03/24/21 11:32 Last Admin: 02/25/21 12:51 Dose: 650 mg Documented by: Benztropine Mesylate (Benztropine Mesylate 1 Mg/Ml 2 Ml Amp) 1 mg IM Q6 PRN PRN Reason: dystonic reaction Stop: 03/24/21 10:14 Clonidine HCl (Clonidine Hcl 0.1 Mg Tab) 0.1 mg PO Q2H PRN PRN Reason: For ANY 2 Symptoms Stop: 03/23/21 15:39 Last Admin: 02/25/21 22:44 Dose: 0.1 mg Documented by: Diclofenac Sodium (Diclofenac Sod 1% Gel 100 Gm Tube) 2 gm EXT BID [facility] Stop: 03/27/21 20:59 Last Admin: 02/26/21 09:04 Dose: 2 gm Documented by: Diphenoxylate HCl/Atropine (Diphenoxylate/Atropine 2.5/0.025mg Tab) 1 tab PO Q4H PRN PRN Reason: Abdomincal cramping/diarrhea Stop: 03/23/21 15:39 Folic Acid ([facility] 1 Mg Tab) [facility] Stop: 03/25/21 15:44 Last Admin: 02/26/21 09:07 Dose: 1 mg Documented by: Haloperidol Lactate (Haloperidol Lactate 5 Mg/Ml 1 Ml Vial) 10 mg IM Q4 PRN PRN Reason: Agitation Stop: 03/24/21 10:14 Lidocaine (Lidocaine 5% 1 Patch) 1 patch TD [facility] Stop: 03/24/21 11:44 Last Admin: 02/26/21 09:07 Dose: 1 patch Documented by: Lorazepam (Lorazepam 2 Mg/Ml Vial (Im Use)) 2 mg IM Q4 PRN PRN Reason: Agitation Stop: 03/24/21 10:14 Last Admin: 02/23/21 03:16 Dose: 2 mg Documented by: Lorazepam (Lorazepam 1 Mg Tab) 1 mg PO Q6 PRN PRN Reason: Anxiety/Insomnia Stop: 03/25/21 11:53 Last Admin: 02/25/21 21:10 Dose: 1 mg Documented by: Miscellaneous (Remove Lidoderm Patch) 1 ea N/A DAILY@2100 [facility] Stop: 03/24/21 20:59 Last Admin: 02/25/21 20:11 Dose: Not Given Documented by: Pantoprazole Sodium (Pantoprazole 40 Mg Tab) 40 mg PO [facility] Stop: 03/27/21 13:59 Last Admin: 02/26/21 09:07 Dose: 40 mg Documented by: Risperidone (Risperidone Odt 1mg) 1 mg PO Q6 PRN PRN Reason: Anxiety/Agitation Stop: 03/24/21 10:14 Last Admin: 02/25/21 16:41 Dose: 1 mg Documented by: Risperidone (Risperidone 1 Mg Tablet) 1 mg PO [facility] Stop: 03/28/21 08:59 Last Admin: 02/26/21 09:06 Dose: 1 mg Documented by: Risperidone (Risperidone 2 Mg Tablet) 2 mg PO [facility] Stop: 03/27/21 20:59 Last Admin: 02/25/21 20:09 Dose: 2 mg Documented by: Thiamine HCl (Thiamine Hcl 100 Mg Tab) 100 mg PO [facility] Stop: 03/25/21 15:44 Last Admin: 02/26/21 09:08 Dose: 100 mg Documented by:
[2021-02-26] MEDS ORDERED: bisacodyL 10 MG SUPP PR STA (16:22)
[2021-02-26] MEDS: POLYETHYLENE (MIRALAX) 17 GM PACK PO SCH (18:07)
[2021-02-26] MEDS: risperiDONE 2 MG TABLET PO SCH (19:37)
[2021-02-26] MEDS: cloNIDine HCL 0.1 MG TAB PO PRN (21:41)
[2021-02-27] MEDS: THIAMINE HCL 100 MG TAB PO SCH (09:09)
[2021-02-27] MEDS: LIDOCAINE 5% 1 PATCH TD SCH (09:09)
[2021-02-27] MEDS: PANTOprazole 40 MG TAB PO SCH (09:09)
[2021-02-27] MEDS: risperiDONE 2 MG TABLET PO SCH ×2 (09:09→21:07)
[2021-02-27] MEDS: DICLOFENAC SOD 1% GEL 100 GM TUBE EXT SCH ×2 (09:09→21:07)
[2021-02-27] MEDS: FOLIC ACID 1 MG TAB PO SCH (09:10)
[2021-02-27] MEDS: POLYETHYLENE (MIRALAX) 17 GM PACK PO SCH (09:10)
[2021-02-27] MEDS: LORazepam 1 MG TAB PO PRN ×2 (12:22→21:07)
--- NOTE | 2021-02-27 17:01 | Hospitalist Progress Note ---
Date of Service February 27, 2021 Assessment & Plan (1) Psychosis: (2) SARS-CoV-2 positive: Plan: 25-year-old male without significant PMH or surgical history was brought to the ED by police on 02/20 for agitation/suicidal attempt. Incidentally he was found to have Covid in the ED. No sign and symptoms suggestive of Covid at presentation. Is being been managed for the following: #. Suicidal behavior with attempted self-injury #. Ingestion of foreign substance #. COVID-19: Tested positive incidentally on presentation, symptomatic. No treatment needed for this. Patient brought to the ED by police for severe agitation and self harming behaviors: patient locked himself in the bathroom the evening [employer] and ingested bottles of shampoo and was eating soap. He also smoked marijuana. In the ED, patient required the use of hard restraints and Haldol 5 mg IM x 2 doses, lorazepam 2 mg IM x 2 doses Admits to using THC, alcohol, soap. Patient counseled. Possible kratom exposure (a form of South tea containing psychoactive alkaloids mitragynine and 17-Hydroxymitrogynine) Denies IV drug use Initially critical care involved due to possibility of aspiration in the background of being unconscious. [address] Appreciate psychiatry input and recommendation. On risperidone, Ativan, Haldol as needed. Continue medications as per psychiatry. Needs negative Covid screen before inpatient psychiatric hospitalization. Remains medically stable #. Epigastric discomfort #. Left first MCP joint pain #. Right flank pain Patient was given PPI and diclofenac gel, Reported improvement. Patient reporting right flank pain 8/10 on 02/27, on examination did not appear to be in pain but still reported he has pain. 02/23 K[facility] x-ray: Unremarkable We will send UA to rule out infection. #. Hypokalemia: Improved #. Elevated LFTs: Improved #. Rhabdomyolysis: Improved Admission and Anticipated Discharge Date Admission Date: February 20, 2021 Subjective Patient seen in at bedside in the Covid home. Sitting up in bed, on room air, NAD. Complains of right flank pain and notes it as 8 out of 10 with no grimacing/reaction during palpation. But verbally says that he has pain 8/10. Will send UA to rule out infection. Denies fever/headache/dizziness/chest pain/other review of symptoms. Physical Exam Physical Exam: GENERAL: Alert and oriented x3. NAD, on RA. HEENT: No pallor, no icterus. Pupils equal, round and reactive to light. Oral mucosa moist. NECK: No JVD, no neck masses. HEART: S1 and S2 heard. Regular rate and rhythm. No murmur, no gallop. RESPIRATORY SYSTEM: Normal AP diameter. No accessory muscle use. No wheezing, no crackles. ABDOMEN: Soft, bowel sounds present, nontender, no distention. CENTRAL NERVOUS SYSTEM: Alert and oriented x3. No facial droop. Speech is clear. Obeys simple commands. Moves extremities. EXTREMITIES: No edema, no erythema seen. Results & Data Results & Data ([facility]) Vital Signs (Past 12 Hours) Vital Signs Temp Pulse Pulse Resp BP BP Pulse Ox 02/27/21 15:04 36.9 C 97 H 17 147/80 H 95 02/27/21 11:00 36.6 C 105 H 18 125/70 98 02/27/21 08:00 82 02/27/21 07:04 36.8 C 102 H 18 133/87 96 02/27/21 04:48 92 H 18 116/67 97 (1) Psychosis Psychosis type: unspecified psychosis type Qualified Code(s): F29 - Un specified psychosis not due to a substance or known physiological condition
[2021-02-27 20:59] LABS: Appearance Urine Clear (Clear); Bilirubin Urine Negative (Negative); Blood Urine Negative (Negative); Color Urine Yellow; Glucose Urine UA Negative (Negative); Ketones Urine Negative (Negative); Leukocyte Esterase Urine Negative (Negative); Nitrite Urine Negative (Negative); Protein Urine Negative (Negative); Urobilinogen Urine Negative (Negative); pH Urine 5.5 (4.5-7.5)
[2021-02-28] MEDS: DICLOFENAC SOD 1% GEL 100 GM TUBE EXT SCH ×2 (09:16→20:53)
[2021-02-28] MEDS: FOLIC ACID 1 MG TAB PO SCH (09:16)
[2021-02-28 09:17] LABS: Hematocrit (blood only) 41.7 % (42-52); Hemoglobin 14.6 g/dL (14.0-18.0); Mean Corpuscular Hemoglobin 31.4 pg (25-34); Mean Corpuscular Volume 89.7 fL (80-100); Platelet Count 235 K/uL (130-400); RDW Coefficient of Variation 13.2 % (11.5-14.5); RDW Standard Deviation 42.7 fL (36.4-46.3); Red Blood Count 4.65 M/uL (4.7-6.1); White Blood Count 9.31 K/uL (4.8-10.8)
[2021-02-28] MEDS: PANTOprazole 40 MG TAB PO SCH (09:17)
[2021-02-28] MEDS: POLYETHYLENE (MIRALAX) 17 GM PACK PO SCH (09:17)
[2021-02-28] MEDS: risperiDONE 2 MG TABLET PO SCH ×2 (09:17→20:52)
[2021-02-28] MEDS: THIAMINE HCL 100 MG TAB PO SCH (09:17)
[2021-02-28] MEDS: LIDOCAINE 5% 1 PATCH TD SCH (09:18)
--- NOTE | 2021-02-28 13:34 | Hospitalist Progress Note ---
Date of Service February 28, 2021 Assessment & Plan (1) Psychosis: (2) SARS-CoV-2 positive: Plan: 25-year-old male without significant PMH or surgical history was brought to the ED by police on 02/20 for agitation/suicidal attempt. Incidentally he was found to have Covid in the ED. No sign and symptoms suggestive of Covid at presentation. Is being been managed for the following: #. Suicidal behavior with attempted self-injury #. Ingestion of foreign substance #. COVID-19: Tested positive incidentally on presentation, symptomatic. No treatment needed for this. Patient brought to the ED by police for severe agitation and self harming behaviors: patient locked himself in the bathroom the evening [employer] and ingested bottles of shampoo and was eating soap. He also smoked marijuana. In the ED, patient required the use of hard restraints and Haldol 5 mg IM x 2 doses, lorazepam 2 mg IM x 2 doses Admits to using THC, alcohol, soap. Patient counseled. Possible kratom exposure (a form of South tea containing psychoactive alkaloids mitragynine and 17-Hydroxymitrogynine) Denies IV drug use Initially critical care involved due to possibility of aspiration in the background of being unconscious. [address] Appreciate psychiatry input and recommendation. On risperidone, Ativan, Haldol as needed. Continue medications as per psychiatry. Needs negative Covid screen before inpatient psychiatric hospitalization: Covid test -02/28, needs another negative Covid test 24 hours apart for psychiatry to take him. Remains medically stable. #. Epigastric discomfort #. Left first MCP joint pain #. Right flank pain Patient was given PPI and diclofenac gel, Reported improvement. Patient reporting right flank pain 8/10 on 02/27, on examination did not appear to be in pain but still reported he has pain. 02/23 [facility] x-ray: Unremarkable We will send UA to rule out infection. #. Hypokalemia: Improved #. Elevated LFTs: Improved #. Rhabdomyolysis: Improved Disposition: We will repeat Covid test tomorrow, possible discharge to psychiatric unit tomorrow. Admission and Anticipated Discharge Date Admission Date: February 20, 2021 Subjective Patient seen in at bedside in the Covid room. Sitting up in bed, on room air, NAD. Does not complain of right flank pain that was there yesterday. UA turned out negative for any infection.. Denies fever/headache/dizziness/chest pain/other review of symptoms. Physical Exam Physical Exam: GENERAL: Alert and oriented x3. NAD, on RA. HEENT: No pallor, no icterus. Pupils equal, round and reactive to light. Oral mucosa moist. NECK: No JVD, no neck masses. HEART: S1 and S2 heard. Regular rate and rhythm. No murmur, no gallop. RESPIRATORY SYSTEM: Normal AP diameter. No accessory muscle use. No wheezing, no crackles. ABDOMEN: Soft, bowel sounds present, nontender, no distention. CENTRAL NERVOUS SYSTEM: Alert and oriented x3. No facial droop. Speech is clear. Obeys simple commands. Moves extremities. EXTREMITIES: No edema, no erythema seen. Results & Data Results & Data ([facility]) Vital Signs (Past 12 Hours) Vital Signs Temp Pulse Pulse Resp BP BP Pulse Ox 02/28/21 11:44 36.5 C 88 17 111/56 L 95 02/28/21 07:23 86 02/28/21 07:17 36.5 C 85 18 124/77 98 02/28/21 03:58 36.8 C 83 20 128/70 98 (1) Psychosis Psychosis type: unspecified psychosis type Qualified Code(s): F29 - Unspecified psychosis not due to a substance or known physiological condition
[2021-02-28] MEDS: LORazepam 1 MG TAB PO PRN (14:41)
[2021-03-01] MEDS: DICLOFENAC SOD 1% GEL 100 GM TUBE EXT SCH (08:40)
[2021-03-01] MEDS: FOLIC ACID 1 MG TAB PO SCH (08:40)
[2021-03-01] MEDS: PANTOprazole 40 MG TAB PO SCH (08:41)
[2021-03-01] MEDS: LIDOCAINE 5% 1 PATCH TD SCH (08:41)
[2021-03-01] MEDS: POLYETHYLENE (MIRALAX) 17 GM PACK PO SCH (08:41)
[2021-03-01] MEDS: THIAMINE HCL 100 MG TAB PO SCH (08:42)
[2021-03-01] MEDS: risperiDONE 2 MG TABLET PO SCH (08:42)
--- NOTE | 2021-03-01 10:11 | Psychiatric Progress Note ---
Date of Service March 01, 2021 Impression / Recommendations Impression 25 yo male with substance induced psychotic episode, stabilized on low dose risperidone, now without any signs or symptoms of psychosis. Patient no longer meets criteria for psychiatric hospitalization and is cleared to return home from a psychiatric perspective. Psychosis is resolved. Patient to continue his current regimen and followup with outpatient psychiatric care. (1) Psychosis: -Patient can be D/Boom to home. 302 discontinued -Continue Risperidone 2mg BID -Patient to followup with outpatient psych services Interval History Identifying Information 25 yo male, admit 02/20 for disorganized and agitated behavior, presumed substance induced psychosis Chief Complaint "I'm feeling much better doctor". Subjective Subjective Patient was assessed and interval progress reviewed with treatment team nursing and social work. Patient states he is eating and sleeping without issue. Denies any adverse effects of the medication. Reports feeling clearer and denies any symptoms. Denies paranoia. Denies Auditory hallucinations. Denies Suicidal or homicidal ideation. Patient states that he is grateful to be feeling better as he was scared by his initial presentation. patient denies this ever happening in the past. Patient attributes his episode to the kratom and marijuana use and states that he is no longer interested in using those substances. He states that he feels safe returning home and is willing to followup with psychiatric aftercare and maintain his current medication regimen. Physical Exam Psychiatric Orientation: alert and oriented x 3 Apperance: appropriately dressed and appropriately groomed Motor Behavior: no abnormal motor movements Speech: normal rate/rhythm/volume of speech Affect: euthymic affect Mood: no depressed mood, no anxious mood and no irritable mood Thought Process: linear/logical thought process, clear/coherent thought process and thought association intact Thought Content: reality based without delusions Suicidal Thoughts: denies suicidal thoughts Homicidal Thoughts: denies homicidal thoughts Hallucinations: no auditory hallucinations and no visual hallucinations Cognition: attention grossly intact and language grossly intact Estimated Intelligence: consistent with education level Insight: + fair insight Judgement: + fair judgement Vital Signs (Past 24 Hours) Last Vital Signs Temp 36.8 C 03/01/21 07:00 Pulse 92 H 03/01/21 07:00 Resp 16 03/01/21 07:00 BP 139/90 03/01/21 07:00 Pulse Ox 95 03/01/21 07:00 Constitutional well developed, well nourished and average body habitus; not ill appearing Eyes PERRL, conjunctivae normal, anicteric sclerae ENMT external ear and nose normal, oropharynx normal Neck trachea midline, no thyromegaly Respiratory + tachypneic; no respiratory distress and no cough Auscultation: lungs clear to auscultation bilaterally and + diminished lung sounds Cardiovascular Rate/Rhythm: regular rate and regular rhythm; not tachycardic Heart Sounds: normal S1 and normal S2; no murmur Vessels: normal peripheral pulses Extremities: no edema Gastrointestinal (Abdomen) normal bowel sounds, soft, nontender, no hepatosplenomegaly Inspection/Auscultation: normal bowel sounds; abdomen not distended Percussion/Palpation: + abdomen tender (Minimally tender in the epigastrium) and abdomen soft Musculoskeletal Extremities: no cyanosis and no clubbing Skin no rashes, warm and dry Neurologic PERRL, EOMI, accommodation nl, no face palsy, no dysarthria Results & Data ([facility]) Laboratory Results Laboratory Results - last 24 hr 02/28/21 02/28/21 03/01/21 10:35 10:35 09:12 COVID-19 Eval Order Covid19 [facility] Covid19 [facility] SARS-CoV-2, RNA, NAAT NEGATIVE 03/01/21 09:12 COVID-19 Eval Order SARS-CoV-2, RNA, NAAT NEGATIVE Current Inpatient Medications Current Inpatient Medications: Current Inpatient Medications Acetaminophen (Acetaminophen 325 Mg Tab) 650 mg PO Q4H PRN PRN Reason: pain/fever Stop: 03/24/21 11:32 Last Admin: 02/25/21 12:51 Dose: 650 mg Documented by: Benztropine Mesylate (Benztropine Mesylate 1 Mg/Ml 2 Ml Amp) 1 mg IM Q6 PRN PRN Reason: dystonic reaction Stop: 03/24/21 10:14 Clonidine HCl (Clonidine Hcl 0.1 Mg Tab) 0.1 mg PO Q2H PRN PRN Reason: For ANY 2 Symptoms Stop: 03/23/21 15:39 Last Admin: 02/26/21 21:41 Dose: 0.1 mg Documented by: Diclofenac Sodium (Diclofenac Sod 1% Gel 100 Gm Tube) 2 gm EXT BID [facility] Stop: 03/27/21 20:59 Last Admin: 03/01/21 08:40 Dose: 2 gm Documented by: Diphenoxylate HCl/Atropine (Diphenoxylate/Atropine 2.5/0.025mg Tab) 1 tab PO Q4H PRN PRN Reason: Abdomincal cramping/diarrhea Stop: 03/23/21 15:39 Last Admin: 03/01/21 08:44 Dose: 1 tab Documented by: Folic Acid (Folic Acid 1 Mg Tab) 1 mg PO [facility] Stop: 03/25/21 15:44 Last Admin: 03/01/21 08:40 Dose: 1 mg Documented by: Haloperidol Lactate (Haloperidol Lactate 5 Mg/Ml 1 Ml Vial) 10 mg IM Q4 PRN PRN Reason: Agitation Stop: 03/24/21 10:14 Lidocaine (Lidocaine 5% 1 Patch) 1 patch TD [facility] Stop: 03/24/21 11:44 Last Admin: 03/01/21 08:41 Dose: 1 patch Documented by: Lorazepam (Lorazepam 2 Mg/Ml Vial (Im Use)) 2 mg IM Q4 PRN PRN Reason: Agitation Stop: 03/24/21 10:14 Last Admin: 02/23/21 03:16 Dose: 2 mg Documented by: Lorazepam (Lorazepam 1 Mg Tab) 1 mg PO Q6 PRN PRN Reason: Anxiety/Insomnia Stop: 03/25/21 11:53 Last Admin: 02/28/21 14:41 Dose: 1 mg Documented by: Miscellaneous (Remove Lidoderm Patch) 1 ea N/A DAILY@2100 [facility] Stop: 03/24/21 20:59 Last Admin: 02/28/21 20:52 Dose: 1 ea Documented by: Pantoprazole Sodium (Pantoprazole 40 Mg Tab) 40 mg PO [facility] Stop: 03/27/21 13:59 Last Admin: 03/01/21 08:41 Dose: 40 mg Documented by: Polyethylene Glycol (Polyethylene (Miralax) 17 Gm Pack) 17 gm PO DAILY [facility] Stop: 03/28/21 16:29 Last Admin: 03/01/21 08:41 Dose: 17 gm Documented by: Risperidone (Risperidone Odt 1mg) 1 mg PO Q6 PRN PRN Reason: Anxiety/Agitation Stop: 03/24/21 10:14 Last Admin: 02/25/21 16:41 Dose: 1 mg Documented by: Risperidone (Risperidone 2 Mg Tablet) 2 mg PO BID [facility] Stop: 03/28/21 20:59 Last Admin: 03/01/21 08:42 Dose: 2 mg Documented by: Thiamine HCl (Thiamine Hcl 100 Mg Tab) 100 mg PO QAM [facility] Stop: 03/25/21 15:44 Last Admin: 03/01/21 08:42 Dose: 100 mg Documented by: (1) Psychosis Psychosis type: unspecified psychosis type Qualified Code(s): F29 - Unspecif ied psychosis not due to a substance or known physiological condition
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
== END 2021-03-01 16:06 | disposition home or self-care (01) | DRG 896 ==
LOC: ED 06:27 → SUATTDRO 10:28 → EDINP 10:28 → 2E 15:17

== ENCOUNTER 2024-03-22 20:39 | Inpatient (IN) ==
[2024-03-22 22:09] LABS: Amphetamines+Metham, Urine Neg (Neg); Barbiturates, Urine Neg (Neg); Benzodiazepine, Urine Neg (Neg); Cocaine, Urine Neg (Neg); Fentanyl, Urine Neg (Neg); MDMA (Ecstacy), Urine Neg (Neg); Marijuana, Urine Pos (Neg); Methadone, Urine Neg (Neg); Opiate, Urine Neg (Neg); Phencyclidine, Urine Neg (Neg)
--- NOTE | 2024-03-22 22:27 | Emergency Department Note ---
Impression & Plan Suicidal ideation, Agitation ED Provider Note NAME: KAMLA GALLOWAY AGE: 28 SEX: M : 1995 ARRIVES VIA: Walk-In INFORMANT: [Patient] ED PROVIDER(S): [Martell Perdomo MD] CHIEF COMPLAINT: Mental health evaluation HISTORY OF PRESENT ILLNESS: The patient is a 28-year-old male who was here earlier today for a mental health evaluation and felt safe for discharge. Lab work showed a mild leukocytosis but was otherwise unrevealing. The patient when he returned home, began to have some difficulty with his thoughts. He was agitated and was having some suicidal thoughts. He thought about running a sword through his abdomen. He became so agitated that his friends were concerned and talked about calling the police. He decided to come for reevaluation at our hospital. The patient feels he should be hospitalized, he is not sure what has made things worse for him. He denies taking or ingesting anything when he returned home from our hospital earlier today. He has not tried to harm himself recently but does have a history of suicidality. The patient uses marijuana quite frequently. He is not prescribed psychiatric medications. PMHx/PSHx/Social Hx: See Below PHYSICAL EXAM: GENERAL: Patient is in no acute distress. HEENT: No acute trauma, normocephalic atraumatic, mucous membranes moist, no nasal congestion. NECK: No stridor, no adenopathy, no meningismus, trachea is midline. LUNGS: Clear to auscultation bilaterally, no wheeze, no rhonchi, breath sounds equal. HEART: Without murmurs gallops or rubs, regular rate and rhythm. ABDOMEN: Soft, nontender, no peritonitis. EXTREMITIES: No cyanosis, full range of motion of all the joints without pain or difficulty. NEUROLOGIC: Awake and alert, no acute motor or sensory deficits, no focal weakness. SKIN: No jaundice, no diaphoresis. Psychiatric: Cooperative and voluntary, does have some tangential thinking. Talks about having suicidal thoughts. DIFFERENTIAL DIAGNOSIS: Psychosis, suicidality, depression, drug abuse, among others. EMERGENCY DEPARTMENT PROCEDURES: MEDICAL DECISION MAKING: Laboratory work from earlier today was reviewed. There was a slight leukocytosis with a white count of 13. There was no anemia or issue with the platelet count. Potassium slightly low but not in need of emergent correction. No renal failure. No worrisome liver enzyme elevation. The patient was in a euthyroid state. Urinalysis showed some potential dehydration, no infection. COVID test returned negative. Laboratory workup from this visit was reviewed. Alcohol, Tylenol and aspirin levels were undetectable. Urine tox was positive for marijuana. The patient presents with increasing agitation and some suicidal thoughts. He has not done well since discharge from our ED earlier today. The patient is asking for a mental health hospitalization. I think this is warranted as his behavior seems to be escalating. The patient became a bit more agitated here in the ED and required 2 mg of sublingual Ativan as well as 25 mg of oral hydroxyzine. Patient was felt medically clear. He was seen by psychiatry case management. A referral was made to S. At this point, the patient's disposition is still pending, the case was assumed by Dr. Tong at the change of shift. Prior/Outside records/notes reviewed: Previous ED visit note from earlier today describing his presentation, testing results and plan at discharge. Imaging/x-ray results per my interpretation: Chronic Medical/Social conditions affecting care: History of previous suicidality. Care/Management discussed with: Psychiatry case management. Level of care consideration(s): After review of the information above and other included data: -- Psychiatric admission voluntarily was felt warranted DISPOSITION: Still a patient in the ED. Past Med/Surg History Problem List (Updated 03/22/24 @ 23:23 by Martell Perdomo MD) Agitation (Acute) Suicidal ideation (Acute) Marijuana use (Acute) Insomnia (Acute) Aspiration into airway DVT prophylaxis Rhabdomyolysis SARS-CoV-2 positive Acute encephalopathy Nondisplaced fracture Aspiration into airway COVID-19 (Acute) Rhabdomyolysis (Acute) DVT prophylaxis Suicidal behavior with attempted self-injury Ingestion of foreign substance Hypokalemia (Acute) No significant past medical history Medical History Psychosis Surgical History No significant past surgical history Family History (Updated 02/20/21 @ 12:58 by MESERET Carrera) Other Family history unobtainable due to patient's condition Social History Smoking Status: Current every day smoker Tobacco Type: E-cigarettes / Vaping Preferred Language: Indonesian Communication Ability: Effective Beliefs That Will Affect Care: None Current Living Situation: Other Feels Safe at Home: Yes Gender Identity: Male Assistive Devices: None Allergies Allergies Allergy/AdvReac Type Severity Reaction Status Date / Time No Known Allergies Allergy Verified 03/22/24 12:24 Home Meds Home Medications Medication Instructions Recorded Confirmed No Known Home Medications 03/22/24 03/22/24 Results & Data (ED) Vital Signs Vital Signs - 24 hr 03/22/24 20:45 03/22/24 22:47 03/23/24 00:00 Temperature 36.3 C L Temperature Source Temporal Artery Scan Pulse Rate 100 H Pulse Rate [Finger] 78 Respiratory Rate 19 16 Respiratory Effort / Characteristics Non-Labored Spontaneous Non-Labored Spontaneous Non-Labored Respiratory Depth Normal Normal Normal Respiratory Pattern Regular Regular Blood Pressure 126/82 Blood Pressure [Left Arm] 139/92 Blood Pressure Mean 96 Blood Pressure Mean [Left Arm] 107 Blood Pressure Position [Left Arm] Lying Pulse Oximetry 99 99 Oxygen Delivery Method Room Air Room Air Sepsis Recent Fever Within 48 Hours No Sepsis New/Unexplained Change in Mental Status N/A Sepsis Action Taken by Nursing No Action Required Home Medications Current Medication List: was personally reviewed by me Laboratory Data Attestation: I reviewed the patient's lab results. Lab Results 03/22/24 03/22/24 Range/Units 21:00 21:30 Salicylates < 3.0 L (3.0-30) mg/dl Urine Opiates Screen Neg (Neg) Ur Methadone, Qual Neg (Neg) Urine Fentanyl Screen Neg (Neg) Acetaminophen < 3 L (10-30) ug/ml Urine Barbiturates Neg (Neg) Ur Phencyclidine (PCP) Neg (Neg) U Amphetamin/Meth Scrn Neg (Neg) MDMA (Ecstasy) Screen Neg (Neg) U Benzodiazepines Scrn Neg (Neg) Ur Cocaine Metabolite Neg (Neg) U Marijuana (THC) Screen Pos H (Neg) Ethyl Alcohol mg/dL < 10.0 (<10.0) mg/dl Administered Medications Discontinued Medications Hydroxyzine HCl (Hydroxyzine Hcl 25 Mg Tab) 25 mg PO NOW STA Stop: 03/22/24 22:03 Last Admin: 03/22/24 22:38 Dose: 25 mg Documented By: TEOFILO Lorazepam (Lorazepam 1 Mg Tab) 2 mg SL NOW STA Stop: 03/22/24 22:03 Last Admin: 03/22/24 22:39 Dose: 2 mg Documented By: TEOFILO Discharge Plan Visit Data Chief Complaint: Mental Health Evaluation Stated Complaint: PSYCHOSIS ED Provider: Martell Perdomo Discharge Problem: Suicidal ideation, Agitation Patient Disposition: Still a Patient Condition: Good Forms Stand Alone Forms: [facility], Suicide Prevention Resources Prescriptions Prescriptions: No Action No Known Home Medications Referrals Referrals: Edmar Wyatt MD [Primary Care Provider] -
[2024-03-22] MEDS: hydrOXYzine HCl 25 MG TAB PO STA (22:38)
[2024-03-22] MEDS: LORazepam 1 MG TAB SL STA (22:39)
[2024-03-22 23:05] LABS: Acetaminophen < 3 ug/ml (10-30); Salicylate < 3.0 mg/dl (3.0-30)
[2024-03-23] MEDS ORDERED: hydrOXYzine HCl 25 MG TAB PO PRN (03:40)
[2024-03-23] MEDS ORDERED: BISMUTH SUBSALICYLATE 262 MG CHEW PO PRN (03:40)
[2024-03-23] MEDS ORDERED: ALUMINUM/MAGNESIUM SUSP 30 ML UDC PO PRN (03:40)
[2024-03-23] MEDS ORDERED: MAGNESIUM HYDROXIDE SUSP 30 ML UDC PO PRN (03:40)
[2024-03-23] MEDS ORDERED: ACETAMINOPHEN 325 MG TAB PO PRN (03:40)
[2024-03-23] MEDS ORDERED: SODIUM CHLORIDE 0.65% NA SOLN 45 ML (OCEAN) PRN (03:40)
[2024-03-23] MEDS ORDERED: OLANZapine 5 MG TABLET PO PRN (03:45)
[2024-03-23 04:43] VITALS: O2SAT 98
--- NOTE | 2024-03-23 05:00 | Emergency Department Note ---
ED Visit Note I received this patient in signout at the change of shift from Dr. Martell Perdomo, pending psychiatric inpatient referral. Patient is voluntary at this time and has been accepted to [facility] for inpatient psychiatric care. He was informed of the findings and plan and agreed. .
--- NOTE | 2024-03-23 09:15 | History & Physical ---
Date of Service March 23, 2024 Impression / Recommendations Impression PAT GALLOWAY is a 28-year-old M who currently lives with his girlfriend and her son, has a history of substance-induced psychosis, and was admitted on 03/23/24 03:03 on a 201 voluntary commitment for psychosis and bizarre behavior with SI to use a sword to stab himself and HI. Diagnostically consistent with unspecified psychosis with differential including MDD with psychotic features vs BPAD current mixed episode vs primary psychotic disorder vs substance-induced psychosis (spoke of high concentration synthetic cannabis use, hx Kratum use during past episode of substance-induced psychosis in Feb 2021). Discussed medication treatment with olanzapine for his thought disorganization and psychosis. He consents to using olanzapine for psychosis. Reviewed side effects including but not limited to: movement (TD, NMS), cardiac (QTc prolongation), and metabolic (stroke, insulin resistance) and necessity for fasting lipid and glucose labwork and AIMS done with score of 0. MNPR due to acute psychosis and homicidal ideation. Overall I spent a total of 75 minutes for this admission including review of chart records, review of labwork, direct evaluation of the patient, counseling the patient, ordering medication, risk assessment, discussion with the psychiatric liason RN and documentation in the electronic health record. (1) Psychosis: Psychosis type: unspecified psychosis type Qualified Code(s): F29 - Unspecified psychosis not due to a substance or known physiological condition (2) Suicidal ideation: (3) Cannabis use disorder: Plan 03/23/2024: The patient was admitted to the [facility] ([facility] mental [facility] unit) on q15 min checks (behavioral with suicide precautions) for safety. The patient will participate in group, recreational, and milieu therapies and will be offered additional individual and family sessions as clinically appropr iate. -Olanzapine 5mg qAM & 10mg HS -Olanzapine 5mg BID prn for psychosis/agitation Inventory Assets Strengths: supportive relationships, willing to get treatment Needs: safety and stabilization, medication adjustment, additional coping skills, increased outpatient services Suicide Risk Level Suicide Risk Level: High-Moderate (q15 min suicide checks) (psychosis with disorganization, statements of SI, but reports feeling safe in the hospital and able to alert nurses if he feels unsafe ) Risk Factors Assessment Male: No Mental Health Diagnoses: Yes Substance Use Disorders: Yes Protective Factors Assessment Stable Relationships: Yes Supportive Family: Yes Psychiatric History Identifying Data PAT GALLOWAY is a 28-year-old M who currently lives with his girlfriend and her son, has a history of substance-induced psychosis, and was admitted on 03/23/24 03:03 on a 201 voluntary commitment for psychosis and bizarre behavior with SI to use a sword to stab himself and HI. Chief Complaint "It's weird stuff, it's hard to talk about". History of Present Illness Pat presents for psychiatric admission for disorganization, paranoia and SI including thoughts of stabbing himself with a sword in his stomach and HI in context of feeling stressed by watching the news. Tells me he came to the hospital for "an inability to resolve something" and that "it's weird stuff, it's hard to talk about" expanding that "I can say broad things but no specific" going on to describe his "sleeping issues" and "vivid dreams". Describes frequently waking in a cold sweat. He reports some substance use, including regular consumption of alcohol, cannabis extracts in crystal form, and nicotine through vaping. He specifies a tendency to consume alcohol heavily at times, particularly favoring hard liquor. He reports frequent suicidal ideation, although he considers these thoughts to be non-effective. He expresses a curiosity about euthanasia systems in [place] "my cousin told me about assisted suicide". Additionally, he admits to harboring thoughts of causing harm to an unnamed ex-partners new partner, but firmly denies any intent to act on these thoughts, and commits to notifying nursing staff should feelings of anger arise. He also describes experiencing symptoms raul to possession during a multi-year cohabitation with a girlfriend, which he now questions as possibly being dream- based. He notes a challenge in articulating specific concerns, offering only "broad things" as a description. To aid in communication and the processing of his thoughts and experiences, he has agreed to try to write out some of his symptoms and concerns in a journal. He is not currently prescribed any psychiatric medications but has found the initial two doses of olanzapine helpful for sleep. Psychiatric ROS unobtainable due to his level of thought disorganization. Based on chart review history of substance-induced psychosis. Unclear if any history of rafael. Additional history per ED CM notes. Pat initially presented to the ED earlier in the day but then re-presented a few hours later. Per ED CM note on 03/22/2024: "Accompanied Dr. Perdomo to meet with patient. Pat stated he feels he "needs to do something." He talked about breaking a law. He stated he left the hospital today and went home. He stated "I was very angry." Pat stated he has thoughts of suicide and "thoughts that maybe I should do something." Pat denies thoughts to harm others. His thoughts appear to be scattered and jumbled. He stated he feels he needs inpatient treatment and does not feel safe at home." and "Spoke with brother in lobby with Pat's verbal consent. Brother stated after talking patient home today "he became fixated on having to do something. He said he wanted to chop his hands off. He tried to break his leg." Brother concerned due to patient "stating he has to do something to stop himself from doing something." Brother stated Pat is not specific on what he needs to stop himself from doing. Brother updated on recommendation for inpatient treatment at this time." Past Psychiatric History Outpatient Services: none known Previous Psych Admissions: none known History of Previous Suicide Attempt: No (none known) Past Medication Trials: risperidone 2mg BID during past episode of substance-induced psychosis in February 2021 Allergies Allergy/AdvReac Type Severity Reaction Status Date / Time No Known Allergies Allergy Verified 03/22/24 12:24 Home Medications Medication Instructions Recorded Confirmed Type No Known Home Medications 03/22/24 03/23/24 History Alcohol History Hx of Alcohol Use Over the Past 12 Months: Yes (unable to state at this time amount) AUDIT Total Score: 4 Smoking Use Have You Smoked or Used Tobacco Products in the Last 30 Days: Yes tobacco type: e-cigarettes Smoking Status: Current every day smoker Substance History Hx of Prescription Med Misuse Over the Past 12 Months: No Hx of Over the Counter Med Misuse Over the Past 12 Months: No Hx of Inhalent Misuse Over the Past 12 Months: No Hx of Organic Substance Use Over the Past 12 Months: Yes (marijuana) Hx of Illegal Substances/Street Drug Use Over Past 12 Months: No Problems as a Result of Past Substance Use: None Identified Personal History Employment Status: Self-Employed (massage therapist ) Marital Status: Living w/ Signif. Other Beliefs That Will Affect Care: None Patient History Medical History Psychosis Surgical History No significant past surgical history Family History Other Family history unobtainable due to patient's condition Social History Smoking Status: Current every day smoker Tobacco Type: E-cigarettes / Vaping Preferred Language: Tunisian Communication Ability: Effective Quarantine Inspector Required: No Beliefs That Will Affect Care: None Current Living Situation: Other Feels Safe at Home: Yes Gender Identity: Male Assistive Devices: None Review of Systems Review of Systems: Unobtainable due to mental health condition Physical Exam Psychiatric: Orientation: alert, oriented to person and oriented to place; + not oriented to time Apperance: appropriately dressed and appropriately groomed Eye Contact: + fair eye contact Motor Behavior: no abnormal motor movements Speech: + abnormal rate/rhythm/volume of speech (soft, mumbled) Affect: + anxious affect and + labile affect Mood: + depressed mood and + anxious mood Thought Process: + thought blocking, + looseness of associations and + incoherent thought process Thought Content: + paranoid, + delusions, + derealization and + hopelessness Suicidal Thoughts: denies suicidal plan (though discussed euthanasia ) and denies suicidal intent; + reports suicidal thoughts Homicidal Thoughts: denies homicidal plan and denies homicidal intent; + reports homicidal thoughts Hallucinations: no auditory hallucinations (unclear ) and no visual hallucinations Cognition: remote memory grossly intact and language grossly intact; + recent memory not intact and + attention not intact Estimated Intelligence: consistent with education level Insight: + limited insight Judgment: + limited judgement Vital Signs (Past 24 Hours): Last Vital Signs Temp 36.7 C 03/23/24 04:20 Pulse 78 03/23/24 04:20 Resp 18 03/23/24 04:20 BP 120/72 03/23/24 04:20 Pulse Ox 98 03/23/24 04:20 O2 Del Method Room Air 03/23/24 04:20 Exam Statement: A physical exam was performed in the ED by Dr. Perdomo for the purposes of medical clearance. I accept that physical as correct and adequate for the purposes of the inpatient physical exam. Results & Data ([facility]) Laboratory Results Laboratory Results - last 24 hr 03/22/24 03/22/24 21:00 21:30 Salicylates < 3.0 L Urine Opiates Screen Neg Ur Methadone, Qual Neg Urine Fentanyl Screen Neg Acetaminophen < 3 L Urine Barbiturates Neg Ur Phencyclidine (PCP) Neg U Amphetamin/Meth Scrn Neg MDMA (Ecstasy) Screen Neg U Benzodiazepines Scrn Neg Ur Cocaine Metabolite Neg U Marijuana (THC) Screen Pos H U Marijuana THC Carboxy Pending Drug Screen Comment Pending Ethyl Alcohol mg/dL < 10.0 Current Inpatient Medications Current Inpatient Medications: Current Inpatient Medications Acetaminophen (Acetaminophen 325 Mg Tab) 650 mg PO Q4H PRN PRN Reason: Headache or Minor Fever Stop: 04/22/24 03:39 Al Hydrox/Mg Hydrox/Simethicone (Aluminum/Magnesium Susp 30 Ml Udc) 30 ml PO Q4H PRN PRN Reason: GI Upset Stop: 04/22/24 03:39 Bismuth Subsalicylate (Bismuth Subsalicylate 262 Mg Chew) 2 tab PO Q30M PRN PRN Reason: Loose Stool/Diarrhea Stop: 04/22/24 03:39 Hydroxyzine HCl (Hydroxyzine Hcl 25 Mg Tab) 50 mg PO HSZ PRN PRN Reason: Insomnia Stop: 04/22/24 03:39 Hydroxyzine HCl (Hydroxyzine Hcl 25 Mg Tab) 25 mg PO Q4H PRN PRN Reason: Anxiety Stop: 04/22/24 03:39 Lorazepam (Lorazepam 1 Mg Tab) 1 mg PO TID PRN PRN Reason: anxiety/agitation Stop: 04/22/24 03:47 Magnesium Hydroxide (Magnesium Hydroxide Susp 30 Ml Udc) 30 ml PO DAILY PRN PRN Reason: Constipation Stop: 04/22/24 03:39 Miscellaneous (Remove Nicoderm Patch) 1 each N/A DAILY@0859 [facility] Stop: 04/23/24 08:58 Nicotine (Nicotine 7 Mg/24 Hr Tdsy) 1 patch TD QAM [facility] Stop: 04/22/24 08:59 Nicotine Polacrilex (Nicotine Polacrilex 2 Mg Gum) 1 piece MT PRN PRN PRN Reason: Nicotine Withdrawal Symptoms Stop: 04/22/24 03:39 Olanzapine (Olanzapine 5 Mg Tablet) 5 mg PO BID PRN PRN Reason: psychosis Stop: 04/22/24 03:44 Sodium Chloride (Sodium Chloride 0.65% Na Soln 45 Ml ([place])) 1 - 2 sprays NA PRN PRN PRN Reason: Nasal Dryness/Congestion Stop: 04/22/24 03:39
[2024-03-23] MEDS: NICOTINE 7 MG/24 HR TDSY TD SCH (14:40)
[2024-03-23] MEDS: OLANZapine 5 MG TABLET PO SCH (14:40)
[2024-03-23] MEDS: OLANZapine 10 MG TAB PO SCH (21:20)
--- NOTE | 2024-03-24 09:00 | Psychiatric Progress Note ---
Date of Service March 24, 2024 Impression / Recommendations Impression KAMLA GALLOWAY is a 28-year-old M who currently lives with his girlfriend and her son, has a history of substance-induced psychosis, and was admitted on 03/23/24 03:03 on a 201 voluntary commitment for psychosis and bizarre behavior with SI to use a sword to stab himself and HI. Diagnostically consistent with unspecified psychosis with differential including MDD with psychotic features vs BPAD current mixed episode vs primary psychotic disorder vs substance-induced psychosis (spoke of high concentration synthetic cannabis use, hx Kratum use during past episode of substance-induced psychosis in Feb 2021). A: Ongoing psychosis with disorganized behavior and thoughts. Significant mood lability with SI. Sleep improving. He's willing to allow labwork tomorrow morning for fasting lipid panel and HbA1c given olanzapine use. MNPR due to acute psychosis and homicidal ideation. Overall, I spent a total of 35 minutes on this case including meeting with the patient, reviewing the chart, nursing report, multidisciplinary team meeting, orders, and documentation. (1) Psychosis: (2) Suicidal ideation: (3) Cannabis use disorder: Plan 03/24/2024: -Fasting lipid panel and HbA1c tomorrow morning as likely able to tolerate this now -Continue current medications and tx plan 03/23/2024: The patient was admitted to the [facility] on q15 min checks (behavioral with suicide precautions) for safety. The patient will participate in group, recreational, and milieu therapies and will be offered additional individual and family sessions as clinically appropriate. -Olanzapine 5mg qAM & 10mg HS -Olanzapine 5mg BID prn for psychosis/agitation Inventory Assets Strengths: supportive relationships, willing to get treatment Needs: safety and stabilization, medication adjustment, additional coping skills, increased outpatient services Suicide Risk Level Suicide Risk Level: High-Moderate (q15 min suicide checks) (psychosis with disorganization, statements of SI, but reports feeling safe in the hospital and able to alert nurses if he feels unsafe ) Risk Factors Assessment Male: No Mental Health Diagnoses: Yes Substance Use Disorders: Yes Protective Factors Assessment Stable Relationships: Yes Supportive Family: Yes Interval History Identifying Information KAMLA GALLOWAY is a 28-year-old M who currently lives with his girlfriend and her son, has a history of substance-induced psychosis, and was admitted on 03/23/24 03:03 on a 201 voluntary commitment for psychosis and bizarre behavior with SI to use a sword to stab himself and HI. Chief Complaint "They're not as organized as I'd like". Review of Systems Sleep Information Total Hours of Sleep: 8 Sleep Comments: LIZA Muoñz Meal Information Percent Meal Consumed - Breakfast: 0 Percent Meal Consumed - Dinner: 0 Nutrition Comment: asleep Subjective Subjective Patient was seen & assessed and interval progress reviewed with treatment team nursing and social work. Slept much of yesterday, seemed to be disorganized on the phone with his girlfriend. Spoke with counselor and was hyperverbal. Spoke with other RNs and was difficult to follow, rapid speech, labile at times from crying to laughing. On meeting this afternoon he agrees he is sleeping better and likes this. Feels his thoughts are still disorganized. Shows me a folder he filled with some drawings of a imelda and a few pieces of writing, some of it in a different language, which doesn't make much sense, seems kind of like very abstract poetry. Denies any olanzapine side effects, wants to continue with this. Needed ativan prn for tearfulness and SI. Continues to have SI. Physical Exam Psychiatric Orientation: alert, oriented to person and oriented to place; + not oriented to time Apperance: appropriately dressed and appropriately groomed Eye Contact: + poor eye contact (back turned to me but looks over his shoulder at times ) Motor Behavior: no abnormal motor movements Speech: + abnormal rate/rhythm/volume of speech (soft, mumbled and rapid) Affect: + anxious affect, + tearful affect and + labile affect Mood: + depressed mood and + anxious mood Thought Process: + thought blocking, + looseness of associations and + incoherent thought process Thought Content: + paranoid, + delusions, + derealization and + hopelessness Suicidal Thoughts: denies suicidal plan (though discussed euthanasia ) and denies suicidal intent; + reports suicidal thoughts Homicidal Thoughts: denies homicidal plan and denies homicidal intent; + reports homicidal thoughts Hallucinations: no auditory hallucinations (unclear, suspected) and no visual hallucinations Cognition: remote memory grossly intact and language grossly intact; + recent memory not intact and + attention not intact Estimated Intelligence: consistent with education level Insight: + limited insight Judgment: + limited judgement Vital Signs (Past 24 Hours) Last Vital Signs Temp 36.0 C L 03/24/24 06:00 Pulse 91 H 03/24/24 06:00 Resp 16 03/24/24 06:00 BP 111/72 03/24/24 06:00 Pulse Ox 98 03/23/24 04:20 O2 Del Method Room Air 03/23/24 04:20 Results & Data ([facility]) Current Inpatient Medications Current Inpatient Medications: Current Inpatient Medications Acetaminophen (Acetaminophen 325 Mg Tab) 650 mg PO Q4H PRN PRN Reason: Headache or Minor Fever Stop: 04/22/24 03:39 Al Hydrox/Mg Hydrox/Simethicone (Aluminum/Magnesium Susp 30 Ml Udc) 30 ml PO Q4H PRN PRN Reason: GI Upset Stop: 04/22/24 03:39 Bismuth Subsalicylate (Bismuth Subsalicylate 262 Mg Chew) 2 tab PO Q30M PRN PRN Reason: Loose Stool/Diarrhea Stop: 04/22/24 03:39 Hydroxyzine HCl (Hydroxyzine Hcl 25 Mg Tab) 50 mg PO HSZ PRN PRN Reason: Insomnia Stop: 04/22/24 03:39 Hydroxyzine HCl (Hydroxyzine Hcl 25 Mg Tab) 25 mg PO Q4H PRN PRN Reason: Anxiety Stop: 04/22/24 03:39 Lorazepam (Lorazepam 1 Mg Tab) 1 mg PO TID PRN PRN Reason: anxiety/agitation Stop: 04/22/24 03:47 Magnesium Hydroxide (Magnesium Hydroxide Susp 30 Ml Udc) 30 ml PO DAILY PRN PRN Reason: Constipation Stop: 04/22/24 03:39 Miscellaneous (Remove Nicoderm Patch) 1 each N/A DAILY@0859 [facility] Stop: 04/23/24 08:58 Nicotine (Nicotine 7 Mg/24 Hr Tdsy) 1 patch TD QAM [facility] Stop: 04/22/24 08:59 Last Admin: 03/23/24 15:07 Dose: Not Given Nicotine Polacrilex (Nicotine Polacrilex 2 Mg Gum) 1 piece MT PRN PRN PRN Reason: Nicotine Withdrawal Symptoms Stop: 04/22/24 03:39 Olanzapine (Olanzapine 5 Mg Tablet) 5 mg PO BID PRN PRN Reason: psychosis Stop: 04/22/24 03:44 Olanzapine (Olanzapine 5 Mg Tablet) 5 mg PO QAM [facility] Stop: 04/22/24 09:29 Last Admin: 03/23/24 14:40 Dose: 5 mg Olanzapine (Olanzapine 10 Mg Tab) 10 mg PO HS [facility] Stop: 04/22/24 21:59 Last Admin: 03/23/24 21:20 Dose: 10 mg Sodium Chloride (Sodium Chloride 0.65% Na Soln 45 Ml ([place])) 1 - 2 sprays NA PRN PRN PRN Reason: Nasal Dryness/Congestion Stop: 04/22/24 03:39 (1) Psychosis Psychosis type: unspecified psychosis type Qualified Code(s): F29 - Unspecified psychosis not due to a substance or known physiological condition
[2024-03-24] MEDS: LORazepam 1 MG TAB PO PRN (15:34)
--- NOTE | 2024-03-25 08:33 | Psychiatric Progress Note ---
Date of Service March 25, 2024 Impression / Recommendations Impression KAMLA GALLOWAY is a 28-year-old M who currently lives with his girlfriend and her son, has a history of substance-induced psychosis, and was admitted on 03/23/24 03:03 on a 201 voluntary commitment for psychosis and bizarre behavior with SI to use a sword to stab himself and HI. Diagnostically consistent with unspecified psychosis with differential including MDD with psychotic features vs BPAD current mixed episode vs primary psychotic disorder vs substance-induced psychosis (spoke of high concentration synthetic cannabis use, hx Kratum use during past episode of substance-induced psychosis in Feb 2021). A: Ongoing psychosis but slightly more behavioral and thought organization today, able to participate in structured interview a bit more. Tolerating olanzapine well and finding this helpful. Collateral from his brother notable for fairly rapid onset of psychosis and recent stress related to his romantic and living situation. No psychosis between episode in 2020 and current episode per brother. Fasting lipid panel and HbA1c reviewed and normal and stable for ongoing use of olanzapine. MNPR due to acute psychosis and recent homicidal ideation. Overall, I spent a total of 30 minutes on this case including meeting with the patient, reviewing the chart, nursing report, multidisciplinary team meeting, orders, and documentation. (1) Psychosis: (2) Suicidal ideation: (3) Cannabis use disorder: Plan 03/25/2024: Continue current medications and tx plan. 03/24/2024: -Fasting lipid panel and HbA1c tomorrow morning as likely able to tolerate this now -Continue current medications and tx plan 03/23/2024: The patient was admitted to the [facility] ([facility] mental health unit) on q15 min checks (behavioral with suicide precautions) for safety. The patient will participate in group, recreational, and milieu therapies and will be offered additional individual and family sessions as clinically appropriate. -Olanzapine 5mg qAM & 10mg HS -Olanzapine 5mg BID prn for psychosis/agitation Inventory Assets Strengths: supportive relationships, willing to get treatment Needs: safety and stabilization, medication adjustment, additional coping skills, increased outpatient services Suicide Risk Level Suicide Risk Level: High-Moderate (q15 min suicide checks) (psychosis with disorganization, statements of SI recently-lessening today, and reports feeling safe in the hospital and able to alert nurses if he feels unsafe ) Risk Factors Assessment Male: No Mental Health Diagnoses: Yes Substance Use Disorders: Yes Protective Factors Assessment Stable Relationships: Yes Supportive Family: Yes Interval History Identifying Information KAMLA GALLOWAY is a 28-year-old M who currently lives with his girlfriend and her son, has a history of substance-induced psychosis, and was admitted on 03/23/24 03:03 on a 201 voluntary commitment for psychosis and bizarre behavior with SI to use a sword to stab himself and HI. Chief Complaint "Doing ok". Review of Systems Sleep Information Total Hours of Sleep: 10 Sleep Comments: HS Zyprexa Meal Information Percent Meal Consumed - Breakfast: 100 Percent Meal Consumed - Lunch: 100 Percent Meal Consumed - Dinner: 90 Nutrition Comment: asleep Subjective Subjective Patient was seen & assessed and interval progress reviewed with treatment team nursing and social work. Slept 10 hours overnight. Held off on olanzapine yes terday until the afternoon due to some fatigue yesterday. Processing with staff but disorganized. Discussed stressor of not getting along with his girlfriend's grandmother who lives with them. He doesn't like his living situation. Endorsed visual hallucinations and thinks this might be related to magic. Tolerated one group yesterday evening. Today describes feeling "ok". Able to respond to some questions but also tangential in discussing a variety of others topics. Reflects that he feels the medications are helpful, he's relieved to hear results of his bloodwork are normal as he feared his blood sugar may have been "too low". Reflects that "I'm feeling a little better from eating, people are nice, sleeping, and drawing." Shows some pictures he katheryn yesterday. States he plans to listen to "sad songs but not all day". Feels the hospitalization is helping him "learn patience, now you can get [employer] deliveries in two days but not here". Physical Exam Psychiatric Orientation: alert and oriented x 3 Apperance: appropriately dressed and appropriately groomed Eye Contact: + fair eye contact Motor Behavior: no abnormal motor movements Speech: + abnormal rate/rhythm/volume of speech (rapid at times) Affect: + anxious affect and + labile affect Mood: + depressed mood and + anxious mood Thought Process: + thought blocking, + tangential thought process and + looseness of associations Thought Content: + paranoid, + delusions and + derealization Suicidal Thoughts: denies suicidal plan (though discussed euthanasia ) and denies suicidal intent; + reports suicidal thoughts (intermittently ) Homicidal Thoughts: denies homicidal thoughts (denies today), denies homicidal plan and denies homicidal intent Hallucinations: no auditory hallucinations (unclear, suspected) and no visual hallucinations Cognition: remote memory grossly intact and language grossly intact; + recent memory not intact and + attention not intact Estimated Intelligence: consistent with education level Insight: + limited insight Judgment: + limited judgement Vital Signs (Past 24 Hours) Last Vital Signs Temp 36.4 C L 03/25/24 06:00 Pulse 88 03/25/24 06:00 Resp 18 03/25/24 06:00 BP 125/82 03/25/24 06:00 Pulse Ox 98 03/23/24 04:20 O2 Del Method Room Air 03/23/24 04:20 Results & Data ([facility]) Current Inpatient Medications Current Inpatient Medications: Current Inpatient Medications Acetaminophen (Acetaminophen 325 Mg Tab) 650 mg PO Q4H PRN PRN Reason: Headache or Minor Fever Stop: 04/22/24 03:39 Al Hydrox/Mg Hydrox/Simethicone (Aluminum/Magnesium Susp 30 Ml Udc) 30 ml PO Q4H PRN PRN Reason: GI Upset Stop: 04/22/24 03:39 Bismuth Subsalicylate (Bismuth Subsalicylate 262 Mg Chew) 2 tab PO Q30M PRN PRN Reason: Loose Stool/Diarrhea Stop: 04/22/24 03:39 Hydroxyzine HCl (Hydroxyzine Hcl 25 Mg Tab) 50 mg PO HSZ PRN PRN Reason: Insomnia Stop: 04/22/24 03:39 Hydroxyzine HCl (Hydroxyzine Hcl 25 Mg Tab) 25 mg PO Q4H PRN PRN Reason: Anxiety Stop: 04/22/24 03:39 Lorazepam (Lorazepam 1 Mg Tab) 1 mg PO TID PRN PRN Reason: anxiety/agitation Stop: 04/22/24 03:47 Last Admin: 03/24/24 15:34 Dose: 1 mg Magnesium Hydroxide (Magnesium Hydroxide Susp 30 Ml Udc) 30 ml PO DAILY PRN PRN Reason: Constipation Stop: 04/22/24 03:39 Miscellaneous (Remove Nicoderm Patch) 1 each N/A DAILY@0859 [facility] Stop: 04/23/24 08:58 Last Admin: 03/24/24 09:00 Dose: 1 each Nicotine (Nicotine 7 Mg/24 Hr Tdsy) 1 patch TD QAM [facility] Stop: 04/22/24 08:59 Last Admin: 03/24/24 09:01 Dose: 1 patch Nicotine Polacrilex (Nicotine Polacrilex 2 Mg Gum) 1 piece MT PRN PRN PRN Reason: Nicotine Withdrawal Symptoms Stop: 04/22/24 03:39 Olanzapine (Olanzapine 5 Mg Tablet) 5 mg PO BID PRN PRN Reason: psychosis Stop: 04/22/24 03:44 Olanzapine (Olanzapine 5 Mg Tablet) 5 mg PO QAM [facility] Stop: 04/22/24 09:29 Last Admin: 03/24/24 12:15 Dose: 5 mg Olanzapine (Olanzapine 10 Mg Tab) 10 mg PO HS [facility] Stop: 04/22/24 21:59 Last Admin: 03/24/24 21:10 Dose: 10 mg Sodium Chloride (Sodium Chloride 0.65% Na Soln 45 Ml ([place])) 1 - 2 sprays NA PRN PRN PRN Reason: Nasal Dryness/Congestion Stop: 04/22/24 03:39 Mental Health & Subst Abuse Tx Psychiatrist Name of Psychiatrist: [facility] Name of Therapist: [facility] Appointment Comment: Marjorie Information Username: Sonam Password: [email or web address]! (1) Psychosis Psychosis type: unspecified psychosis type Qualified Code(s): F29 - Unspecified psychosis not due to a substance or known physiological condition
[2024-03-25 09:01] LABS: Estimated Average Glucose 100 mg/dl; Hemoglobin A1C 5.1 % (4.5-5.6)
[2024-03-25 09:03] LABS: Chol HDL Ratio 3.1 (0-5)
[2024-03-25 15:32] LABS: Marijuana Quant, GCMS Urine 2055 ng/mL (<5)
[2024-03-25] MEDS: NICOTINE POLACRILEX 2 MG GUM MT PRN (22:21)
[2024-03-26 06:36] VITALS: RESP 16
--- NOTE | 2024-03-26 15:24 | Psychiatric Progress Note ---
Date of Service March 26, 2024 Impression / Recommendations Impression KAMLA GALLOWAY is a 28-year-old M who currently lives with his girlfriend and her son, has a history of substance-induced psychosis, and was admitted on 03/23/24 03:03 on a 201 voluntary commitment for psychosis and bizarre behavior with SI to use a sword to stab himself and HI. Diagnostically consistent with unspecified psychosis with differential including MDD with psychotic features vs BPAD current mixed episode vs primary psychotic disorder vs substance-induced psychosis (spoke of high concentration synthetic cannabis use, hx Kratum use during past episode of substance-induced psychosis in Feb 2021). A: Presents continued thought disorganization, low mood, irritability, intrusive thoughts. Differential for causes psychosis includes substance-induced, bpad mixed episode, schizoaffective depressed type, MDD with psychosis. We will gather further collateral from family and clarify. Patient presents improved sleep, irritability, thought process. He is tolerating the olanzapine well and we will plan to continue. MNPR due to acute psychosis and recent suicidal and homicidal ideation. Overall, I spent a total of 40 minutes on this case including meeting with the patient, reviewing the chart, nursing report, multidisciplinary team meeting, orders, and documentation. (1) Psychosis: (2) Homicidal ideation: (3) Suicidal ideation: (4) Cannabis use disorder: (5) Alcohol abuse: Plan 03/26/2024: Continue medications and treatment plan. 03/25/2024: Continue current medications and tx plan. 03/24/2024: -Fasting lipid panel and HbA1c tomorrow morning as likely able to tolerate this now -Continue current medications and tx plan 03/23/2024: The patient was admitted to the [facility] ([facility] mental health unit) on q15 min checks (behavioral with suicide precautions) for safety. The patient will participate in group, recreational, and milieu therapies and will be offered additional individual and family sessions as clinically appropriate. -Olanzapine 5mg qAM & 10mg HS -Olanzapine 5mg BID prn for psychosis/agitation Inventory Assets Strengths: supportive relationships, willing to get treatment Needs: safety and stabilization, medication adjustment, additional coping skills, increased outpatient services Suicide Risk Level Suicide Risk Level: High-Moderate (q15 min suicide checks) (psychosis with disorganization, statements of SI recently-lessening today, and reports feeling safe in the hospital and able to alert nurses if he feels unsafe ) Risk Factors Assessment Male: No Mental Health Diagnoses: Yes Substance Use Disorders: Yes Protective Factors Assessment Stable Relationships: Yes Supportive Family: Yes Interval History Identifying Information KAMLA GALLOWAY is a 28-year-old M who currently lives with his girlfriend and her son, has a history of substance-induced psychosis, and was admitted on 03/23/24 03:03 on a 201 voluntary commitment for psychosis and bizarre behavior with SI to use a sword to stab himself and HI. Chief Complaint "Escaping yourself" Review of Systems Sleep Information Total Hours of Sleep: 6.5 Sleep Comments: HS Zyprexa Meal Information Percent Meal Consumed - Breakfast: 100 Percent Meal Consumed - Lunch: 100 Percent Meal Consumed - Dinner: 100 Nutrition Comment: asleep Subjective Subjective Patient was seen & assessed and interval progress reviewed with treatment team nursing and social work Patient reports having to make difficult decisions about ending his relationship. He initially presents an inappropriate affect and is smiling. Resistant to being tearful and mentions this. Reports has been drinking more heavily to feel better to escape problems. Reports heavy marijuana use with the dabbing, edibles, smoking 2 g daily. Reports increased caffeine use recently. Denies other drug use recently. Feels the olanzapine is helping and has clear thoughts and is sleeping better. Is upset because he has lapses in memory over what took place of her the last few days and has been doubting himself. Complains of intrusive intermittent SI and HI thoughts which have improved. Says these thoughts make him feel uncomfortable. Says initial irritability has improved. He [place] [facility] [place] and has family on both sides. Reports maternal will not had panic attacks and had visits to the ER for mental health checkups. Father and paternal uncle were heavy alcohol users. Maternal aunt had heavy alcohol use. Reports past risperidone 2 mg twice daily from last hospitalization was taken for 1 week and then he discontinued it by himself. Reports feeling well for 2 to 3 weeks and then thought disorganization returned and has been on/off persistent since then. Provided permission to contact brother, and GF ([facility] [phone]). Physical Exam Mental Examination Appearance: Unkempt and Inappropriate Eye Contact: Breaks Contact Motor Behavior: Restless Speech: Disorganized Mood: Euthymic and Anxious Affect: Constricted and Labile (at times) Thought Process: Disorganized Thought Content: Intact (can't recall some recent events, suicidal/homicidal ideation) and Preoccupation (intrusive thoughts) Hallucinations: None Insight: Poor Judgement: Poor Vital Signs (Past 24 Hours) Last Vital Signs Temp 36.4 C L 03/26/24 06:34 Pulse 73 03/26/24 06:35 Resp 16 03/26/24 06:34 BP 118/77 03/26/24 06:35 Pulse Ox 98 03/23/24 04:20 O2 Del Method Room Air 03/23/24 04:20 Results & Data ([facility]) Laboratory Results Laboratory Results - last 24 hr 03/22/24 21:00 U Marijuana THC Carboxy 2054 H Drug Screen Comment SEE NOTE Current Inpatient Medications Current Inpatient Medications: Current Inpatient Medications Acetaminophen (Acetaminophen 325 Mg Tab) 650 mg PO Q4H PRN PRN Reason: Headache or Minor Fever Stop: 04/22/24 03:39 Al Hydrox/Mg Hydrox/Simethicone (Aluminum/Magnesium Susp 30 Ml Udc) 30 ml PO Q4H PRN PRN Reason: GI Upset Stop: 04/22/24 03:39 Bismuth Subsalicylate (Bismuth Subsalicylate 262 Mg Chew) 2 tab PO Q30M PRN PRN Reason: Loose Stool/Diarrhea Stop: 04/22/24 03:39 Hydroxyzine HCl (Hydroxyzine Hcl 25 Mg Tab) 50 mg PO HSZ PRN PRN Reason: Insomnia Stop: 04/22/24 03:39 Hydroxyzine HCl (Hydroxyzine Hcl 25 Mg Tab) 25 mg PO Q4H PRN PRN Reason: Anxiety Stop: 04/22/24 03:39 Lorazepam (Lorazepam 1 Mg Tab) 1 mg PO TID PRN PRN Reason: anxiety/agitation Stop: 04/22/24 03:47 Last Admin: 03/26/24 12:59 Dose: 1 mg Magnesium Hydroxide (Magnesium Hydroxide Susp 30 Ml Udc) 30 ml PO DAILY PRN PRN Reason: Constipation Stop: 04/22/24 03:39 Miscellaneous (Remove Nicoderm Patch) 1 each N/A DAILY@0859 [facility] Stop: 04/23/24 08:58 Last Admin: 03/26/24 09:00 Dose: Not Given Nicotine (Nicotine 7 Mg/24 Hr Tdsy) 1 patch TD QAM [facility] Stop: 04/22/24 08:59 Last Admin: 03/26/24 13:03 Dose: 1 patch Nicotine Polacrilex (Nicotine Polacrilex 2 Mg Gum) 1 piece MT PRN PRN PRN Reason: Nicotine Withdrawal Symptoms Stop: 04/22/24 03:39 Last Admin: 03/25/24 22:21 Dose: 1 piece Olanzapine (Olanzapine 5 Mg Tablet) 5 mg PO BID PRN PRN Reason: psychosis Stop: 04/22/24 03:44 Olanzapine (Olanzapine 5 Mg Tablet) 5 mg PO QAM [facility] Stop: 04/22/24 09:29 Last Admin: 03/26/24 08:54 Dose: 5 mg Olanzapine (Olanzapine 10 Mg Tab) 10 mg PO HS [facility] Stop: 04/22/24 21:59 Last Admin: 03/25/24 22:20 Dose: 10 mg Sodium Chloride (Sodium Chloride 0.65% Na Soln 45 Ml ([place])) 1 - 2 sprays NA PRN PRN PRN Reason: Nasal Dryness/Congestion Stop: 04/22/24 03:39 Mental Health & Subst Abuse Tx Psychiatrist Name of Psychiatrist: [facility] Name of Therapist: [facility] Appointment Comment: Marjorie Information Username: Sonam Password: [email or web address]! (1) Psychosis Psychosis type: unspecified psychosis type Qualified Code(s): F29 - Unspecified psychosis not due to a substance or known physiological condition
--- NOTE | 2024-03-27 09:31 | Psychiatric Progress Note ---
Date of Service March 27, 2024 Impression / Recommendations Impression KAMLA GALLOWAY is a 28-year-old M who currently lives with his girlfriend and her son, has a history of substance-induced psychosis, and was admitted on 03/23/24 03:03 on a 201 voluntary commitment for psychosis and bizarre behavior with SI to use a sword to stab himself and HI. Diagnostically consistent with unspecified psychosis with differential including MDD with psychotic features vs BPAD current mixed episode vs primary psychotic disorder vs substance-induced psychosis (spoke of high concentration synthetic cannabis use, hx Kratum use during past episode of substance-induced psychosis in Feb 2021). A: Today collateral and patient interview reveal information concerning for history of major depression with significant loss of self-esteem. Past psychotic episodes have directly correlated with high concentration cannabis use. Likely recent vivid dreams are due to cannabis withdrawal. Plan to start fluoxetine 20 mg; side effects and adverse effects discussed with patient and agreeable. Patient was educated about major depressive episodes and timeline for medication efficacy. MNPR due to acute psychosis and recent suicidal and homicidal ideation. Overall, I spent a total of 35 minutes on this case including meeting with the patient, reviewing the chart, nursing report, multidisciplinary team meeting, orders, and documentation. (1) Disorganized thought process: (2) Psychosis: (3) Major depression, recurrent: (4) Cannabis use disorder: (5) Alcohol abuse: Plan 03/27/2024: Start fluoxetine 10 mg today and increase to 20 mg tomorrow. 03/26/2024: Continue medications and treatment plan. 03/25/2024: Continue current medications and tx plan. 03/24/2024: -Fasting lipid panel and HbA1c tomorrow morning as likely able to tolerate this now -Continue current medications and tx plan 03/23/2024: The patient was admitted to the [facility] unit) on q15 min checks (behavioral with suicide precautions) for safety. The patient will participate in group, recreational, and milieu therapies and will be offered additional individual and family sessions as clinically appropriate. -Olanzapine 5mg qAM & 10mg HS -Olanzapine 5mg BID prn for psychosis/agitation Inventory Assets Strengths: supportive relationships, willing to get treatment Needs: safety and stabilization, medication adjustment, additional coping skills, increased outpatient services Suicide Risk Level Suicide Risk Level: High-Moderate (q15 min suicide checks) (psychosis with disorganization, statements of SI recently-lessening today, and reports feeling safe in the hospital and able to alert nurses if he feels unsafe ) Risk Factors Assessment Male: No Mental Health Diagnoses: Yes Substance Use Disorders: Yes Protective Factors Assessment Stable Relationships: Yes Supportive Family: Yes Interval History Identifying Information KAMLA GALLOWAY is a 28-year-old M who currently lives with his girlfriend and her son, has a history of substance-induced psychosis, and was admitted on 03/23/24 03:03 on a 201 voluntary commitment for psychosis and bizarre behavior with SI to use a sword to stab himself and HI. Chief Complaint "Vivid dreams" Review of Systems Sleep Information Total Hours of Sleep: 6.5 Sleep Comments: HS Zyprexa Meal Information Percent Meal Consumed - Breakfast: 100 Percent Meal Consumed - Lunch: 100 Percent Meal Consumed - Dinner: 100 Nutrition Comment: asleep Subjective Subjective Patient was seen & assessed and interval progress reviewed with treatment team nursing and social work Patient had a good night. Reports having vivid dreams however did not wake him up. Reports this last week having a certified nurse operating room over his emotions but then losing it after he smoked marijuana Thursday. Reports difficulty with decisions about his relationship and feels he needs to break up but does not know how to express himself to do it. Reports that "sadness comes so easily". Uses cannabis to escape problems. Complains of poor sleep prior to hospitalization including last hospitalization as well. He recalls past trauma from last hospitalization and becomes tearful and is upset that he might put other people and harm. He denies suicidal or homicidal ideation. He reports feelings of anger and irritability and wants to get it out but does not know how. Throughout the interview he is often judging himself negatively for his current situation predicament. Provided permission to contact [facility] (Marissa Caban [phone]): He was acting strangely after he was smoking marijuana together on Thursday03/21/24 2-3pm. Day before was ok. Was talking about super emotional things such as having a family. Kept saying [facility] is a liar because voice told him that. He grabbed his chest and started pounding chest saying he was a liar. Taking clothes completely off, and putting them back on. He was acting strange. Weird babbling. Urinated on bedroom floor. Resistant to go to ER. Became calm briefly. Pt asked GF if hell exists and GF answer upset him. Then pt got in car and drove to mother's home in [place]. Brother took him to ER. Marijuana is strong and from dispensary, pt normally smokes sativa, but this time took Indica. No new drugs. Week before he had a tooth infection and resolved with antibiotics; resolved. Pt has lost job last year, pt regularly stays up at night playing video games and sleeps during the day. Over the weekend was more spontaneous and more willing to leave house. No threats of harm towards self or others. Similar presentation to February 2021. Between current and last hospitalization, he presented breif periods when his speech was disorganized and rambles. Would happen in the evening after smoking marijuana and next day is fine. No complaints of AVH. Feels pt may have depression. Lack of self esteem. Physical Exam Mental Examination Appearance: Unkempt Eye Contact: Maintains Eye Contact Motor Behavior: Unremarkable Speech: Disorganized Mood: Euthymic and Anxious Affect: Constricted Thought Process: Disorganized (improved) Thought Content: Intact (can't recall some recent events, suicidal/homicidal ideation) and Preoccupation (intrusive thoughts) Hallucinations: None Insight: Poor (improving) Judgement: Poor (recurrent drug abuse, med non-adherence on outpatient basis) Vital Signs (Past 24 Hours) Last Vital Signs Temp 36.4 C L 03/27/24 06:35 Pulse 67 03/27/24 06:36 Resp 16 03/27/24 06:35 BP 107/73 03/27/24 06:36 Pulse Ox 98 03/23/24 04:20 O2 Del Method Room Air 03/23/24 04:20 Results & Data ([facility]) Current Inpatient Medications Current Inpatient Medications: Current Inpatient Medications Acetaminophen (Acetaminophen 325 Mg Tab) 650 mg PO Q4H PRN PRN Reason: Headache or Minor Fever Stop: 04/22/24 03:39 Al Hydrox/Mg Hydrox/Simethicone (Aluminum/Magnesium Susp 30 Ml Udc) 30 ml PO Q4H PRN PRN Reason: GI Upset Stop: 04/22/24 03:39 Bismuth Subsalicylate (Bismuth Subsalicylate 262 Mg Chew) 2 tab PO Q30M PRN PRN Reason: Loose Stool/Diarrhea Stop: 04/22/24 03:39 Hydroxyzine HCl (Hydroxyzine Hcl 25 Mg Tab) 50 mg PO HSZ PRN PRN Reason: Insomnia Stop: 04/22/24 03:39 Hydroxyzine HCl (Hydroxyzine Hcl 25 Mg Tab) 25 mg PO Q4H PRN PRN Reason: Anxiety Stop: 04/22/24 03:39 Lorazepam (Lorazepam 1 Mg Tab) 1 mg PO TID PRN PRN Reason: anxiety/agitation Stop: 04/22/24 03:47 Last Admin: 03/26/24 12:59 Dose: 1 mg Magnesium Hydroxide (Magnesium Hydroxide Susp 30 Ml Udc) 30 ml PO DAILY PRN PRN Reason: Constipation Stop: 04/22/24 03:39 Miscellaneous (Remove Nicoderm Patch) 1 each N/A DAILY@0859 [facility] Stop: 04/23/24 08:58 Last Admin: 03/27/24 09:18 Dose: 1 each Nicotine (Nicotine 7 Mg/24 Hr Tdsy) 1 patch TD QAM [facility] Stop: 04/22/24 08:59 Last Admin: 03/26/24 13:03 Dose: 1 patch Nicotine Polacrilex (Nicotine Polacrilex 2 Mg Gum) 1 piece MT PRN PRN PRN Reason: Nicotine Withdrawal Symptoms Stop: 04/22/24 03:39 Last Admin: 03/25/24 22:21 Dose: 1 piece Olanzapine (Olanzapine 5 Mg Tablet) 5 mg PO BID PRN PRN Reason: psychosis Stop: 04/22/24 03:44 Olanzapine (Olanzapine 5 Mg Tablet) 5 mg PO QAM [facility] Stop: 04/22/24 09:29 Last Admin: 03/27/24 09:17 Dose: 5 mg Olanzapine (Olanzapine 10 Mg Tab) 10 mg PO HS [facility]NER Stop: 04/22/24 21:59 Last Admin: 03/26/24 21:12 Dose: 10 mg Sodium Chloride (Sodium Chloride 0.65% Na Soln 45 Ml ([place])) 1 - 2 sprays NA PRN PRN PRN Reason: Nasal Dryness/Congestion Stop: 04/22/24 03:39 Mental Health & Subst Abuse Tx Psychiatrist Name of Psychiatrist: [facility] Name of Therapist: [facility] Appointment Comment: MyChart Information Username: Sonam Password: [email or web address]! (2) Psychosis Psychosis type: unspecified psychosis type Qualified Code(s): F29 - Unspecified psychosis not due to a substance or known physiological condition
[2024-03-27] MEDS: FLUoxetine HCL 10 MG CAP PO ONE (11:25)
[2024-03-28] MEDS: FLUoxetine HCL 20 MG CAP PO SCH (08:46)
--- NOTE | 2024-03-28 14:22 | Psychiatric Progress Note ---
Date of Service March 28, 2024 Impression / Recommendations Impression KAMLA GALLOWAY is a 28-year-old M who currently lives with his girlfriend and her son, has a history of substance-induced psychosis, and was admitted on 03/23/24 03:03 on a 201 voluntary commitment for psychosis and bizarre behavior with SI to use a sword to stab himself and HI. Diagnostically consistent with unspecified psychosis with differential including MDD with psychotic features vs BPAD current mixed episode vs primary psychotic disorder vs substance-induced psychosis (spoke of high concentration synthetic cannabis use, hx Kratum use during past episode of substance-induced psychosis in Feb 2021). A: Today patient presents an improved thought process and is able to better communicate his feelings. He demonstrates improved insight and reports plan for medication adherence and to cut down drug use. Continues to present poor self- esteem likely secondary to ongoing depression. He has been tolerating fluoxetine well and we will plan to continue. Patient is working on an aftercare plan. MNPR due to recent suicidal/homicidal ideation and psychotic symptoms Overall, I spent a total of 35 minutes on this case including meeting with the patient, reviewing the chart, nursing report, multidisciplinary team meeting, orders, and documentation. (1) Psychosis: (2) Major depression, recurrent: (3) Cannabis use disorder: (4) Alcohol abuse: Plan 03/28/2024: Continue medications and treatment plan. 03/27/2024: Start fluoxetine 10 mg today and increase to 20 mg tomorrow. 03/26/2024: Continue medications and treatment plan. 03/25/2024: Continue current medications and tx plan. 03/24/2024: -Fasting lipid panel and HbA1c tomorrow morning as likely able to tolerate this now -Continue current medications and tx plan 03/23/2024: The patient was admitted to the [facility] ([facility]) on q15 min checks (behavioral with suicide precautions) for safety. The patient will participate in group, recreational, and milieu therapies and will be offered additional individual and family sessions as clinically appropriate. -Olanzapine 5mg qAM & 10mg HS -Olanzapine 5mg BID prn for psychosis/agitation Inventory Assets Strengths: supportive relationships, willing to get treatment Needs: safety and stabilization, medication adjustment, additional coping skills, increased outpatient services Suicide Risk Level Suicide Risk Level: High-Moderate (q15 min suicide checks) (psychosis with disorganization, statements of SI recently-lessening today, and reports feeling safe in the hospital and able to alert nurses if he feels unsafe ) Risk Factors Assessment Male: No Mental Health Diagnoses: Yes Substance Use Disorders: Yes Protective Factors Assessment Stable Relationships: Yes Supportive Family: Yes Interval History Identifying Information KAMLA GALLOWAY is a 28-year-old M who currently lives with his girlfriend and her son, has a history of substance-induced psychosis, and was admitted on 03/23/24 03:03 on a 201 voluntary commitment for psychosis and bizarre behavior with SI to use a sword to stab himself and HI. Chief Complaint "Anxious, scared, nervous" Review of Systems Sleep Information Total Hours of Sleep: 6.5 Sleep Comments: HS Zyprexa Meal Information Percent Meal Consumed - Breakfast: 100 Percent Meal Consumed - Lunch: 100 Percent Meal Consumed - Dinner: 100 Nutrition Comment: asleep Subjective Subjective Patient was seen & assessed and interval progress reviewed with treatment team nursing and social work Patient reports thoughts have improved. says he is fearful of the future. Feels bad that he did not follow up with case management and medications last time. Feels he is over using marijuana and may have lost his last job for not keeping up with responsibilities. He wants to take a break from his current relationship. Considering living with his brother or his family in [place]. Reports wanting to be consistent with his medications. Does not want to dwell in the past. Often judges himself throughout the interview and reports that he does not feel "worthy". He is tolerating Prozac well. Reports good sleep last night. Denies SI and HI. Complains of feelings of anger and frustration and needs an outlet. Physical Exam Mental Examination Appearance: Unkempt Eye Contact: Maintains Eye Contact Motor Behavior: Unremarkable Speech: Soft Mood: Euthymic and Anxious Affect: Constricted Thought Process: Intact Thought Content: Intact (can't recall some recent events) and Preoccupation (intrusive thoughts) Hallucinations: None Insight: Fair (to limited, improved) Judgement: Poor (to limited; recurrent drug abuse, med non-adherence on outpatient basis, improving) Vital Signs (Past 24 Hours) Last Vital Signs Temp 36.7 C 03/28/24 06:42 Pulse 84 03/28/24 06:42 Resp 16 03/28/24 06:42 BP 118/71 03/28/24 06:42 Pulse Ox 98 03/23/24 04:20 O2 Del Method Room Air 03/23/24 04:20 Results & Data ([facility]) Current Inpatient Medications Current Inpatient Medications: Current Inpatient Medications Acetaminophen (Acetaminophen 325 Mg Tab) 650 mg PO Q4H PRN PRN Reason: Headache or Minor Fever Stop: 04/22/24 03:39 Al Hydrox/Mg Hydrox/Simethicone (Aluminum/Magnesium Susp 30 Ml Udc) 30 ml PO Q4H PRN PRN Reason: GI Upset Stop: 04/22/24 03:39 Bismuth Subsalicylate (Bismuth Subsalicylate 262 Mg Chew) 2 tab PO Q30M PRN PRN Reason: Loose Stool/Diarrhea Stop: 04/22/24 03:39 Fluoxetine HCl (Fluoxetine Hcl 20 Mg Cap) 20 mg PO QAM [facility] Stop: 04/27/24 08:59 Last Admin: 03/28/24 08:46 Dose: 20 mg Hydroxyzine HCl (Hydroxyzine Hcl 25 Mg Tab) 50 mg PO HSZ PRN PRN Reason: Insomnia Stop: 04/22/24 03:39 Hydroxyzine HCl (Hydroxyzine Hcl 25 Mg Tab) 25 mg PO Q4H PRN PRN Reason: Anxiety Stop: 04/22/24 03:39 Lorazepam (Lorazepam 1 Mg Tab) 1 mg PO TID PRN PRN Reason: anxiety/agitation Stop: 04/22/24 03:47 Last Admin: 03/26/24 12:59 Dose: 1 mg Magnesium Hydroxide (Magnesium Hydroxide Susp 30 Ml Udc) 30 ml PO DAILY PRN PRN Reason: Constipation Stop: 04/22/24 03:39 Miscellaneous (Remove Nicoderm Patch) 1 each N/A DAILY@0859 [facility] Stop: 04/23/24 08:58 Last Admin: 03/28/24 08:46 Dose: 1 each Nicotine (Nicotine 7 Mg/24 Hr Tdsy) 1 patch TD QAM [facility] Stop: 04/22/24 08:59 Last Admin: 03/28/24 08:46 Dose: 1 patch Nicotine Polacrilex (Nicotine Polacrilex 2 Mg Gum) 1 piece MT PRN PRN PRN Reason: Nicotine Withdrawal Symptoms Stop: 04/22/24 03:39 Last Admin: 03/27/24 13:01 Dose: 1 piece Olanzapine (Olanzapine 5 Mg Tablet) 5 mg PO BID PRN PRN Reason: psychosis Stop: 04/22/24 03:44 Olanzapine (Olanzapine 5 Mg Tablet) 5 mg PO QAM [facility] Stop: 04/22/24 09:29 Last Admin: 03/28/24 08:50 Dose: 5 mg Olanzapine (Olanzapine 10 Mg Tab) 10 mg PO HS [facility] Stop: 04/22/24 21:59 Last Admin: 03/27/24 21:04 Dose: 10 mg Sodium Chloride (Sodium Chloride 0.65% Na Soln 45 Ml ([place])) 1 - 2 sprays NA PRN PRN PRN Reason: Nasal Dryness/Congestion Stop: 04/22/24 03:39 Mental Health & Subst Abuse Tx Psychiatrist Name of Psychiatrist: [facility] Name of Therapist: [facility] - Lilian Trujillo Therapist's Date of Therapist Appointment: 04/01/24 - Thursday Time of Therapist Appointment: 12PM - video visit through [facility] Appointment Comment: [facility] Information Username: Sonam Password: [email or web address]! (1) Psychosis Psychosis type: unspecified psychosis type Qualified Code(s): F29 - Unspecified psychosis not due to a substance or known physiological condition
--- NOTE | 2024-03-29 15:12 | Psychiatric Progress Note ---
Date of Service March 29, 2024 Impression / Recommendations Impression KAMLA GALLOWAY is a 28-year-old M who currently lives with his girlfriend and her son, has a history of substance-induced psychosis, and was admitted on 03/23/24 03:03 on a 201 voluntary commitment for psychosis and bizarre behavior with SI to use a sword to stab himself and HI. Diagnostically consistent with unspecified psychosis with differential including MDD with psychotic features vs BPAD current mixed episode vs primary psychotic disorder vs substance-induced psychosis (spoke of high concentration synthetic cannabis use, hx Kratum use during past episode of substance-induced psychosis in Feb 2021). A: Today patient presents an improved thought process and is able to better communicate his feelings. He demonstrates improved insight and reports plan for medication adherence and to cut down drug use. Continues to present poor self- esteem likely secondary to ongoing depression. Mild dizziness from Fluoxetine and likely self limited; plan to continue. Plan to live with brother on discharge. MNPR due to recent suicidal/homicidal ideation and psychotic symptoms Overall, I spent a total of 35 minutes on this case including meeting with the patient, reviewing the chart, nursing report, multidisciplinary team meeting, orders, and documentation. (1) Psychosis: (2) Major depression, recurrent: (3) Cannabis use disorder: (4) Alcohol abuse: Plan 03/28/2024: Continue medications and treatment plan. 03/27/2024: Start fluoxetine 10 mg today and increase to 20 mg tomorrow. 03/26/2024: Continue medications and treatment plan. 03/25/2024: Continue current medications and tx plan. 03/24/2024: -Fasting lipid panel and HbA1c tomorrow morning as likely able to tolerate this now -Continue current medications and tx plan 03/23/2024: The patient was admitted to the [facility] ([facility] inpatient mental health unit) on q15 min checks (behavioral with suicide precautions) for safety. The patient will participate in group, recreational, and milieu therapies and will be offered additional individual and family sessions as clinically appropriate. -Olanzapine 5mg qAM & 10mg HS -Olanzapine 5mg BID prn for psychosis/agitation Inventory Assets Strengths: supportive relationships, willing to get treatment Needs: safety and stabilization, medication adjustment, additional coping skills, increased outpatient services Suicide Risk Level Suicide Risk Level: High-Moderate (q15 min suicide checks) (psychosis with disorganization, statements of SI recently-lessening today, and reports feeling safe in the hospital and able to alert nurses if he feels unsafe ) Risk Factors Assessment Male: No Mental Health Diagnoses: Yes Substance Use Disorders: Yes Protective Factors Assessment Stable Relationships: Yes Supportive Family: Yes Interval History Identifying Information KAMLA GALLOWAY is a 28-year-old M who currently lives with his girlfriend and her son, has a history of substance-induced psychosis, and was admitted on 03/23/24 03:03 on a 201 voluntary commitment for psychosis and bizarre behavior with SI to use a sword to stab himself and HI. Chief Complaint "anxious" Review of Systems Sleep Information Total Hours of Sleep: 7.25 Sleep Comments: HS Zyprexa Meal Information Percent Meal Consumed - Breakfast: 100 Percent Meal Consumed - Lunch: 100 Percent Meal Consumed - Dinner: 100 Nutrition Comment: asleep Subjective Subjective Patient was seen & assessed and interval progress reviewed with treatment team nursing and social work Nursing reports patient reported improved mood. Had a family meeting with brother and went well. Completed safety plan. Outpatient psychiatry appointment for 04/04/2024 On interview patient reports being worried about breaking up with girlfriend [id number]. He was counseled. Says they lived together and she has a son and a mother who lived with them. Complains of mild dizziness with Prozac and reports it has improved from the first day. Reports future plans to get a job and to go to [place] to live with his brother. Feels that his thoughts are clear. Is considering taking a break from marijuana use. He denies suicidal and homicidal ideation. Reports improved sleep. Physical Exam Mental Examination Appearance: Unkempt Eye Contact: Maintains Eye Contact Motor Behavior: Unremarkable Speech: Soft Mood: Euthymic and Anxious Affect: Constricted Thought Process: Intact Thought Content: Intact (can't recall some recent events) Hallucinations: None Insight: Fair (to limited, improved) Judgement: Poor (to limited; recurrent drug abuse, med non-adherence on outpatient basis, improving) Vital Signs (Past 24 Hours) Last Vital Signs Temp 36.5 C 03/29/24 06:35 Pulse 86 03/29/24 06:36 Resp 16 03/29/24 06:35 BP 98/61 L 03/29/24 06:36 Pulse Ox 98 03/23/24 04:20 O2 Del Method Room Air 03/23/24 04:20 Results & Data ([facility]) Current Inpatient Medications Current Inpatient Medications: Current Inpatient Medications Acetaminophen (Acetaminophen 325 Mg Tab) 650 mg PO Q4H PRN PRN Reason: Headache or Minor Fever Stop: 04/22/24 03:39 Al Hydrox/Mg Hydrox/Simethicone (Aluminum/Magnesium Susp 30 Ml Udc) 30 ml PO Q4H PRN PRN Reason: GI Upset Stop: 04/22/24 03:39 Bismuth Subsalicylate (Bismuth Subsalicylate 262 Mg Chew) 2 tab PO Q30M PRN PRN Reason: Loose Stool/Diarrhea Stop: 04/22/24 03:39 Fluoxetine HCl (Fluoxetine Hcl 20 Mg Cap) 20 mg PO QAM COUNTS INCLUDE 234 BEDS AT THE [facility] Stop: 04/27/24 08:59 Last Admin: 03/29/24 08:41 Dose: 20 mg Hydroxyzine HCl (Hydroxyzine Hcl 25 Mg Tab) 50 mg PO HSZ PRN PRN Reason: Insomnia Stop: 04/22/24 03:39 Hydroxyzine HCl (Hydroxyzine Hcl 25 Mg Tab) 25 mg PO Q4H PRN PRN Reason: Anxiety Stop: 04/22/24 03:39 Lorazepam (Lorazepam 1 Mg Tab) 1 mg PO TID PRN PRN Reason: anxiety/agitation Stop: 04/22/24 03:47 Last Admin: 03/26/24 12:59 Dose: 1 mg Magnesium Hydroxide (Magnesium Hydroxide Susp 30 Ml Udc) 30 ml PO DAILY PRN PRN Reason: Constipation Stop: 04/22/24 03:39 Miscellaneous (Remove Nicoderm Patch) 1 each N/A DAILY@0859 COUNTS INCLUDE 234 BEDS AT THE [facility] Stop: 04/23/24 08:58 Last Admin: 03/29/24 08:41 Dose: 1 each Nicotine (Nicotine 7 Mg/24 Hr Tdsy) 1 patch TD QAM COUNTS INCLUDE 234 BEDS AT THE [facility] Stop: 04/22/24 08:59 Last Admin: 03/29/24 12:34 Dose: 1 patch Nicotine Polacrilex (Nicotine Polacrilex 2 Mg Gum) 1 piece MT PRN PRN PRN Reason: Nicotine Withdrawal Symptoms Stop: 04/22/24 03:39 Last Admin: 03/27/24 13:01 Dose: 1 piece Olanzapine (Olanzapine 5 Mg Tablet) 5 mg PO BID PRN PRN Reason: psychosis Stop: 04/22/24 03:44 Olanzapine (Olanzapine 5 Mg Tablet) 5 mg PO QAM TANNER Stop: 04/22/24 09:29 Last Admin: 03/29/24 08:41 Dose: 5 mg Olanzapine (Olanzapine 10 Mg Tab) 10 mg PO HS TANNER Stop: 04/22/24 21:59 Last Admin: 03/28/24 21:38 Dose: 10 mg Sodium Chloride (Sodium Chloride 0.65% Na Soln 45 Ml ([place])) 1 - 2 sprays NA PRN PRN PRN Reason: Nasal Dryness/Congestion Stop: 04/22/24 03:39 Mental Health & Subst Abuse Tx Psychiatrist Name of Psychiatrist: Dr. Jacob ([facility]) - Virtual Psychiatrist's Date Of Appointment With Psychiatric Provider: 04/04/24 - Thursday Time of Appointment with Psychiatrist: 1:30PM (Login at 1:15PM) Psychiatric Appointment Comment: YouScribe Username: Sonam Password: [email or web address]! Therapist Name of Therapist: [place] Therapist - Lilian Trujillo Therapist's Date of Therapist Appointment: 04/01/24 - Thursday Time of Therapist Appointment: 12PM - video visit through [facility] Appointment Comment: YouScribe Username: Sonam Password: [email or web address]! Heel Seam Rubber Name of Heel Seam Rubber: [employer] Phone Number for Heel Seam Rubber: [phone] Case Management Appointment Comment: data analysis manager will contact you for scheduling post discharge (1) Psychosis Psychosis type: unspecified psychosis type Qualified Code(s): F29 - Unspecified psychosis not due to a substance or known physiological condition
[2024-03-29] MEDS: hydrOXYzine HCl 25 MG TAB PO PRN (17:29)
[2024-03-30 06:38] VITALS: BP 117/72; TEMP 97.5
--- NOTE | 2024-03-30 09:08 | Discharge Summary ---
Date of Service March 30, 2024 History of Present Illness Pat presents for psychiatric admission for disorganization, paranoia and SI including thoughts of stabbing himself with a sword in his stomach and HI in context of feeling stressed by watching the news. Tells me he came to the hospital for "an inability to resolve something" and that "it's weird stuff, it's hard to talk about" expanding that "I can say broad things but no specific" going on to describe his "sleeping issues" and "vivid dreams". Describes frequently waking in a cold sweat. He reports some substance use, including regular consumption of alcohol, cannabis extracts in crystal form, and nicotine through vaping. He specifies a tendency to consume alcohol heavily at times, particularly favoring hard liquor. He reports frequent suicidal ideation, although he considers these thoughts to be non-effective. He expresses a curiosity about euthanasia systems in [place] "my cousin told me about assisted suicide". Additionally, he admits to harboring thoughts of causing harm to an unnamed ex-partners new partner, but firmly denies any intent to act on these thoughts, and commits to notifying nursing staff should feelings of anger arise. He also describes experiencing symptoms raul to possession during a multi-year cohabitation with a girlfriend, which he now questions as possibly being dream- based. He notes a challenge in articulating specific concerns, offering only "broad things" as a description. To aid in communication and the processing of his thoughts and experiences, he has agreed to try to write out some of his symptoms and concerns in a journal. He is not currently prescribed any psychiatric medications but has found the initial two doses of olanzapine helpful for sleep. Psychiatric ROS unobtainable due to his level of thought disorganization. Based on chart review history of substance-induced psychosis. Unclear if any history of rafael. Additional history per ED CM notes. Pat initially presented to the ED earlier in the day but then re-presented a few hours later. Per ED CM note on 4: "Accompanied Dr. Perdomo to meet with patient. Pat stated he feels he "needs to do something." He talked about breaking a law. He stated he left the hospital today and went home. He stated "I was very angry." Pat stated he has thoughts of suicide and "thoughts that maybe I should do something." Pat denies thoughts to harm others. His thoughts appear to be scattered and jumbled. He stated he feels he needs inpatient treatment and does not feel safe at home." and "Spoke with brother in lobby with Pat's verbal consent. Brother stated after talking patient home today "he became fixated on having to do something. He said he wanted to chop his hands off. He tried to break his leg." Brother concerned due to patient "stating he has to do something to stop himself from doing something." Brother stated Pat is not specific on what he needs to stop himself from doing. Brother updated on recommendation for inpatient treatment at this time." Physical Exam Mental Examination Appearance: Unkempt Eye Contact: Maintains Eye Contact Motor Behavior: Unremarkable Speech: Soft Mood: Euthymic and Anxious Affect: Constricted Thought Process: Intact Thought Content: Intact (can't recall some recent events) Hallucinations: None Insight: Fair (to limited, improved) Judgement: Poor (to limited; recurrent drug abuse, med non-adherence on outpatient basis, improving) Vital Signs (Past 24 Hours) Last Vital Signs Temp 36.4 C L 03/30/24 06:36 Pulse 79 03/30/24 06:37 Resp 16 03/30/24 06:36 BP 117/72 03/30/24 06:37 Pulse Ox 98 03/23/24 04:20 O2 Del Method Room Air 03/23/24 04:20 Principal Diagnosis Schizoaffective disorder, bipolar type Psychiatric Data See daily stay summary. In short, safety was maintained and the patient was cooperative with care. Medication changes included starting Fluoxetine 20mg daily, Olanzapine 10mg HS and they tolerated this well. A family session was held and safety plan was completed prior to discharge. Patient's psychosis resolved significantly and triggered by excess marijuana and relationship s tressors. Given 2nd episode of psychosis there is concern for primary psychotic disorder. Pt was counseled on marijuana abstinence and agreeable to temporary abstinence. Day of Discharge Assessment Today the patient voices readiness for discharge. They note improvement in mood and deny thoughts to harm self or others. Thoughts remain organized and they are improved from admission. There is no evidence of psychosis. They agree to take mediations as prescribed and keep follow-up appointments. They are stable for discharge to outpatient level of care. Plans to stay at brother's home. Transition of Care Transition Of Care Record: was reviewed with the patient Advance Directives Advance Directives Information Provided: Yes Advance Directives: No Mental Health Advance Directive: No Advance Directives on File: No Living Will: No Power of Deckhand: No Advance Directives Reason:: Declines as Mental Health Visit. Risk Factors Assessment Male: No Mental Health Diagnoses: Yes Substance Use Disorders: Yes Protective Factors Assessment Stable Relationships: Yes Supportive Family: Yes Discharge Data Lab Results 03/22/24 03/22/24 03/25/24 21:00 21:30 08:10 Estimat Average Glucose 100 Hemoglobin A1c 5.1 Triglycerides 93 Cholesterol 131 LDL Cholesterol, Calc 70 VLDL Cholesterol, Calc 19 HDL Cholesterol 42 Cholesterol/HDL Ratio 3.1 Salicylates < 3.0 L Urine Opiates Screen Neg Ur Methadone, Qual Neg Urine Fentanyl Screen Neg Acetaminophen < 3 L Urine Barbiturates Neg Ur Phencyclidine (PCP) Neg U Amphetamin/Meth Scrn Neg MDMA (Ecstasy) Screen Neg U Benzodiazepines Scrn Neg Ur Cocaine Metabolite Neg U Marijuana (THC) Screen Pos H U Marijuana THC Carboxy 2055 H Drug Screen Comment SEE NOTE Ethyl Alcohol mg/dL < 10.0 Hospital Course (1) Schizoaffective disorder, depressive type with good prognostic features: (2) Cannabis use disorder: (3) Alcohol abuse: Plan 03/28/2024: Continue medications and treatment plan. 03/27/2024: Start fluoxetine 10 mg today and increase to 20 mg tomorrow. 03/26/2024: Continue medications and treatment plan. 03/25/2024: Continue current medications and tx plan. 03/24/2024: -Fasting lipid panel and HbA1c tomorrow morning as likely able to tolerate this now -Continue current medications and tx plan 03/23/2024: The patient was admitted to the [facility] ([facility] inpatient mental health unit) on q15 min checks (behavioral with suicide precautions) for safety. The patient will participate in group, recreational, and milieu therapies and will be offered additional individual and family sessions as clinically appropriate. -Olanzapine 5mg qAM & 10mg HS -Olanzapine 5mg BID prn for psychosis/agitation Mental Health & Subst Abuse Tx Psychiatrist Name of Psychiatrist: Dr. Jacob ([facility]) - Virtual Psychiatrist's Date Of Appointment With Psychiatric Provider: 04/04/24 - Thursday Time of Appointment with Psychiatrist: 1:30PM (Login at 1:15PM) Psychiatric Appointment Comment: Ret[employer] Information Username: Sonam Password: [email or web address]! Therapist Name of Therapist: [place] Therapist - Lilian Trujillo Therapist's Date of Therapist Appointment: 04/01/24 - Thursday Time of Therapist Appointment: 12PM - video visit through [facility] Therapy Appointment Comment: [email or web address] Username: Sonam Password: [email or web address]! Sewing Machine Repairer Name of Sewing Machine Repairer: [employer] Phone Number for Sewing Machine Repairer: [phone] Case Management Appointment Comment: technical project manager will contact you for scheduling post discharge Discharge Plan Discharge Items Patient Disposition: Home - Self-Care Reason For Visit: UNSPECIFIED PSYCHOSIS Discharge Diagnosis: Schizoaffective disorder, depressive type with good prognostic features Cannabis use disorder Alcohol abuse Condition on Discharge: Good Activity: Resume your previous activity Non-emergency contact: Primary Care Provider and Psychiatrist Call non-emergency contact if: you have any medication questions and your symptoms worsen Follow-up/Referrals: Edmar Wyatt MD [Primary Care Provider] - Diet: Regular Addtl Attending Provider Instructions: -Continue Fluoxetine 20mg daily (can also be taken at night if more convenient) -Continue Olanzapine 10mg HS -Follow-up with outpatient psychiatrist -Engage in regular therapy -Work on self care, good sleep hygiene, exercise regularly Your body and mind are your sikhism Pending Studies at Discharge: No Stand-Alone Forms: [facility], Smoking Cessation Medications and DC Order Prescriptions: New olanzapine 10 mg Tablet 10 mg PO HS Qty: 30 0RF fluoxetine 20 mg Capsule 20 mg PO QAM Qty: 30 0RF nicotine 7 mg/24 hr Patch 24 Hour 1 patch transdermal QAM Qty: 30 0RF No Action No Known Home Medications Discharge Orders: Discharge Order (Routine); Ordered 03/30/24 Ordered By: Ruben Amezcua Admission Data Admit Date/Time: 03/23/24 03:03 Attending Provider: Ruben Amezcua Admit Provider: Elana Allen Primary Care Provider: Edmar Wyatt Other Interventions: Discharge Summary Assessment (RN) Last Done: 03/30/24 10:20 PSY Interdisciplinary Discharge Planning Last Done: 03/30/24 10:19 [place] [address] D/C day mgmt > 30 min Patient Type Established History Detailed Exam Detailed Medical Decision Making Moderate Complexity Diagnoses Schizoaffective disorder, depressive type with good prognostic features F25.1 Cannabis use disorder F12.90 Alcohol abuse F10.10
[2024-03-30 10:22] VITALS: PULSE 78
== END 2024-03-30 11:10 | disposition home or self-care (01) | DRG 885 ==
LOC: ED 20:39 → 3S 03-23 03:03 → SUATTDRO 03-23 03:03 → 3S 03-23 03:30